=== PATIENT | female | born 1950 | race Caucasian/White ===

== ENCOUNTER → 2018-07-21 | Outpatient (CLI) | payer MEDICARE, SELFPAY ==
--- NOTE | 2018-07-21 08:33 | BI_ITS ---
MAMMOGRAPHY - BILATERAL SCREENING REASON FOR EXAM: Female, 67 years old. Routine annual screening examination. PERTINENT HISTORY: Non-contributory. TECHNIQUE: Digital bilateral breast raymond (3D mammographic acquisition) in the CC and MLO projections. 2-D mediolateral oblique (MLO) and craniocaudad (CC) views of both breasts were obtained. CAD: Full Field Digital Mammography with Computer Added Detection was performed. COMPARISON: Comparison is made with prior outside examination dated June 20, 2017. FINDINGS: Breast Composition: There are scattered areas of fibroglandular density. There are no dominant masses or suspicious calcifications. No other significant abnormalities are identified. There has been no significant change since the prior study. BI/SCREENING MAMM (CAD), BILAT IMPRESSION: Stable bilateral screening mammogram. Yearly follow-up mammogram recommended. (A) ASSESSMENT CATEGORY: BIRADS Category 1: Negative. A letter regarding these results will be sent to the patient by the facility within 30 days. Approximately 10% of breast cancers are not detected by mammography. A normal mammogram should not delay biopsy of a clinically suspicious abnormality. [id number] Electronically Signed: Cj Wei, at 13:48 EDT , Service support ,
== END | disposition home or self-care (01) ==
PROVIDERS: Family Provider Internal Medicine; PCP Internal Medicine; Referring Provider Internal Medicine; Visit Provider Internal Medicine
DX: Z12.31 Encounter for screening mammogram for malignant neoplasm of breast (principal)
CPT/HCPCS: 77063; 77067

== ENCOUNTER → 2018-12-13 | Outpatient (CLI) | payer MEDICARE, SELFPAY ==
[2018-12-13 09:24] VITALS: BMI 27.8
--- NOTE | 2018-12-13 10:50 | BD_ITS ---
STUDY: DUAL ENERGY X-RAY ABSORPTIOMETRY / DXA REASON FOR EXAM: Female, 67 years old. The patient is postmenopausal. Loss of height. TECHNIQUE: Bone Mineral Density (BMD) measurements of lumbar spine and bilateral hips were obtained. COMPARISON: None. FINDINGS: Lumbar Spine (L1-L4): g/cm2 (1.185) / T-score (0.1) / Z-score (1.7) Findings are suggestive of normal bone density with a low fracture risk. Left Femur Total: g/cm2 (0.996) / T-score (-0.1) / Z-score (1.2) Left Femoral Neck: g/cm2 (0.841) / T-score (-1.4) / Z-score (0.1) Right Femur Total: g/cm2 (1.009) / T-score (0.0) / Z-score (1.3) Right Femoral Neck: g/cm2 (0.899) / T-score (-1.0) / Z-score (0.5) BD/Dexa Bone Density Study IMPRESSION: The patient is considered osteopenic as outlined below according to World Brian Organization (WHO) criteria with a low fracture risk. Reference Information: The T-score is the number of standard deviations above or below the standard which is normal for young adults at their peak bone mineral density. The World Health Organization (WHO) interprets the T-scores as follows: Above -1 Normal bone density Between -1 and -2.5 Osteopenia Equal to / or below -2.5 Osteoporosis As a practical clinical guideline, osteopenia may be graded as follows: Mild -1 through -1.5 Moderate -1.6 through -2.0 Severe -2.1 through -2.4 The Z-score is the number of standard deviations above or below age-matched controls. A Z-score of less than -1.5 would be considered abnormal. References: 1. NIH Osteoporosis and Related Bone Diseases http://www.osteo.org 2. International Society for Clinical Densitometry http://www.iscd.org 3. National Osteoporosis Foundation http://www.nof.org Electronically Signed: Cj Wei, at 14:00 EDT , Service support ,
== END | disposition home or self-care (01) ==
LOC: OPBD 10:49
PROVIDERS: Family Provider Internal Medicine; PCP Internal Medicine; Referring Provider Internal Medicine; Visit Provider Internal Medicine
DX: Z78.0 Asymptomatic menopausal state (principal); Z13.820 Encounter for screening for osteoporosis
CPT/HCPCS: 77080

== ENCOUNTER 2019-01-03 07:24 | Day surgery (SDC) | payer MEDICARE, SELFPAY ==
[2018-12-13 09:24] VITALS: BMI 27.8
--- NOTE | 2018-12-14 10:18 | HP_ITS ---
Intake Vital Signs 12/13/18 Height 5 ft 5.5 in 12/13/18 Weight: 170 lb 12/13/18 Body Mass Index (BMI) 27.8 12/13/18 Blood Pressure 122/75 H 12/13/18 Blood Pressure Location Rt brachial Intake Visit Reasons: Cscope Consult [employer] Required: No Is patient in pain?: No Allergies aspirin Allergy (Mild, Verified 12/13/18 09:28) Rash diltiazem [From Cardizem] Allergy (Mild, Verified 12/13/18 09:28) Rash nifedipine Allergy (Mild, Verified 12/13/18 09:28) Rash Medications isosorbide dinitrate 30 mg tablet 30 mg PO BID 12/13/18 [History Confirmed 12/13/18] rosuvastatin 10 mg tablet 10 mg PO DAILY 12/13/18 [History Confirmed 12/13/18] verapamil ER 120 mg 24 hr capsule,extended release 120 mg PO DAILY 12/13/18 [History Confirmed 12/13/18] PFSH Medical History Heart disease (Acute) Surgical History S/P laparoscopic cholecystectomy (Acute) S/P tubal ligation (Acute) Family History Mother Diabetes Sister Diabetes CAD (coronary artery disease) Father Heart disease Social History (Updated 12/14/18 @ 10:19 by Chester Muller MD) Smoking Status: Former smoker alcohol intake: never HPI HPI HPI: BJORN STEPHENS, is a 67 F who presents to the office today for HPI HPI Surgical H&P: Yes HPI: BJORN STEPHENS, is a 67 F who presents to the office today for Evaluation for screening colonoscopy. Patient had a colonoscopy approximately 11 years ago in [place] by Dr. Bay. She has had no pain and no discomfort and is been moving her bowels without difficulty. ROS General General: No weight change, appetite, fatigue, colon cancer, breast cancer or weakness HEENT HEENT: No difficulty swallowing, eye injury, eye surgery, swollen glands or hoarseness Endo Endocrine: No thyroid disease, diabetes mellitus, thyroid cancer, Hair loss, heat intolerance or cold intolerance Skin Skin: No rash or changing moles Breast Breast: No left breast lump, right breast lump, nipple discharge, breast pain, abnormal mammogram, abnormal US or breast enlargement Musc Musculoskeletal: Yes arthritis; no back problems, rheumatoid arthritis, gout or joint pain Cardio Cardiovascular: Yes heart disease and heart attack; no murmur, pacemaker, atrial fibrillation, high blood pressure, heart stent, palpitations, shortness of breat with exertion or chest pain Psych Psychiatric: No depression, anxiety or hearing voices Resp Respiratory: No shortness of breath, No sleep apnea, No cough, No COPD, No asthma, No emphysema, No wheezing Gastro Gastrointestinal: No abdominal pain, No nausea or vomiting, No diarrhea, No constipation, No blood in stool, No acid reflux, No hemorrhoids, No ulcers, No gallbladder problem, No black,tarry stools Rajesh Hematologic: No blood thinners, No blood disorders, No bleeding, No anemia, No blood clots Neuro Neurologic: No system reviewed and no additional complaints, except as docu, No as per HPI, No abnormal walking, No abnormal hearing, No abnormal movements, No abnormal speech, No behavioral changes, No burning sensations, No confusion, No seizure-like activity, No unsteadiness, No dizziness, No localized weakness, No frequent falls, No headache(s), No lack of coordination, No loss of vision, No memory loss, No numbness, No other visual disturbances, No radiating pain, No restless legs, No sensory deficit, No fainting, No tingling, No tremor(s), No weakness, No other Exam Const General: no acute distress, well developed, well hydrated Orientation: oriented to person, oriented to place, oriented to time [facility] Head: normocephalic, atraumatic Ears: external ears normal Mouth: moist mucous membranes Eyes Sclera: sclerae normal Pupils: normal by confrontation Neck Neck: no lymphadenopathy noted Neck mass: No Thyroid: thyroid normal, symmetrical Chest Chest palpation & inspection: normal inspection of the chest Breast Palpation: No nipple discharge Resp Effort & Inspection: normal respiratory effort Auscultation: clear to auscultation bilaterally Percussion: percussion normal Cardio Rate: regular rate Rhythm: regular rhythm Heart Sounds: no murmurs GI Palpation: soft, no hepatosplenomegaly, no masses, nontender Rectal Exam: other Other: Rectal exam deferred. Extrem General: normal to inspection, no clubbing, cyanosis or edema Assessment & Plan Problems 1. Encounter for screening colonoscopy Z12.11 Plan I have discussed the above with the patient. I have offered the patient colonoscopy for evaluation. I have explained the risks/benefits of the procedure and described the procedure. I have discussed the risks with the patient, including but not limited to: infection, bleeding, perforation of the GI tract requiring emergency surgery, inability to complete the procedure, injury to any internal organs, complications of anesthesia, etc. - the patient understands and agrees to proceed. I have answered all the patient's questions to the patient's satisfaction and the patient has no further questions. The patient has been given instructions for the colon cleansing preparation. Coding Level of Care Code Off vis,new,level 3 Diagnoses Encounter for screening colonoscopy Z12.11 12/14/18 1019 <Electronically signed by Chester bradford MD> Date _ Chester Muller MD I have re-examined the patient. There are no clinical changes since date of exam.
[2019-01-03] VITALS (9 sets, daily range): BP systolic 78–125; BP diastolic 39–77; PULSE 50–69; RESP 16; TEMP 36.1–36.3; O2SAT 95–100; BMI 28.5
[2019-01-03] MEDS: Lactated Ringers 1,000 ML 100 ML IV (08:14)
[2019-01-03 08:21] LABS: Bedside Glucose 115 mg/dL (70-110)
--- NOTE | 2019-01-03 09:19 | OP.ENDO_ITS ---
01/03/2019 Tamia Ansari Re : Colonoscopy procedure for Sharonda Gurrola Dear Coty This procedure was performed on Thursday, January 03, 2019. My impressions and recommendations are as follows: Impressions : - Melanosis in the colon. No specimens collected. - The examination was otherwise normal on direct and retroflexion views. Recommendations : - Discharge patient to home. - Resume previous diet. - Continue present medications. - Repeat colonoscopy in 10 years for screening purposes. - Return to primary care physician PRN. My findings are described in the full procedure note, which is enclosed. If I can be of further assistance, please feel free to contact me at Doctor phone number(s): , Fax: [phone], Work: . Sincerely, MD Chester Talbot MD 01/03/2019 9:18:46 AM This report has been signed electronically.
== END 2019-01-03 10:29 | disposition home or self-care (01) ==
LOC: EN 07:24 → AC 07:26
PROVIDERS: Family Provider Internal Medicine; PCP Internal Medicine; Referring Provider Internal Medicine; Visit Provider Surgery
PROC: 0DJD8ZZ Inspection of Lower Intestinal Tract, Via Natural or Artificial Opening Endoscopic (ICD-10-PCS; CPT 45378; principal; 2019-01-03 08:30)
DX: Z12.11 Encounter for screening for malignant neoplasm of colon (principal); K63.89 Other specified diseases of intestine; I51.9 Heart disease, unspecified; E78.00 Pure hypercholesterolemia, unspecified; E11.9 Type 2 diabetes mellitus without complications; I25.2 Old myocardial infarction; I10 Essential (primary) hypertension; Z87.891 Personal history of nicotine dependence; Z79.899 Other long term (current) drug therapy
CPT/HCPCS: G0121; 82962; J7120; J2405

== ENCOUNTER → 2021-01-27 10:31 | Outpatient (CLI) | payer MEDICARE, SELFPAY ==
--- NOTE | 2021-01-27 10:33 | BI_ITS ---
MAMMOGRAPHY - BILATERAL SCREENING REASON FOR EXAM: Female, 70 years old. Routine annual screening examination. PERTINENT HISTORY: Non-contributory. TECHNIQUE: Digital bilateral breast charlie (3D mammographic acquisition) in the CC and MLO projections. 2-D mediolateral oblique (MLO) and craniocaudad (CC) views of both breasts were obtained. CAD: Full Field Digital Mammography with Computer Added Detection was performed. COMPARISON: Comparison is made with prior study dated 07/21/2018. FINDINGS: Breast Composition: There are scattered areas of fibroglandular density. There are no dominant masses or suspicious calcifications. Stable benign-appearing bilateral axillary lymph nodes. No other significant abnormalities are identified. There has been no significant change since the prior study. BI/SCRN MAMM (CAD)W/CHARLIE BILAT IMPRESSION: Stable bilateral screening mammogram. Yearly follow-up mammogram recommended. (A) ASSESSMENT CATEGORY: BIRADS Category 2: Benign. A letter regarding these results will be sent to the patient by the facility within 30 days. Approximately 10% of breast cancers are not detected by mammography. A normal mammogram should not delay biopsy of a clinically suspicious abnormality. [id number] Electronically Signed: Cj Wei MD at 12:13 EST , Service support ,
--- NOTE | 2021-01-27 10:36 | BD_ITS ---
STUDY: DUAL ENERGY X-RAY ABSORPTIOMETRY / DXA REASON FOR EXAM: Female, 70 years old. M85.89 TECHNIQUE: Bone Mineral Density (BMD) measurements of lumbar spine and bilateral hips were obtained. COMPARISON: Comparison is made with prior study 12/13/2018. FINDINGS: Lumbar Spine (L1-L4): g/cm2 (1.025) / T-score (-0.2) / Z-score (1.8) Findings are suggestive of normal bone density with a low fracture risk. Left Femur Total: g/cm2 (0.933) / T-score (-0.1) / Z-score (1.4) Left Femoral Neck: g/cm2 (0.666) / T-score (-1.6) / Z-score (0.1) Right Femur Total: g/cm2 (0.941) / T-score (0.0) / Z-score (1.4) Right Femoral Neck: g/cm2 (0.706) / T-score (-1.3) / Z-score (0.4) The T-Scores on the most recent prior examination were: Lumbar Spine (L1-L4): There has been worsening of bone density since the previous examination. Left Femur Total: which represents an improvement of 0.3%. Right Femur Total: which represents a worsening of 0.2%. BD/Dexa Bone Density Study IMPRESSION: The patient is considered osteopenic as outlined below according to World Brian Organization (WHO) criteria with a moderate fracture risk. There has been worsening of bone density since the previous examination. Reference Information: The T-score is the number of standard deviations above or below the standard which is normal for young adults at their peak bone mineral density. The World Health Organization (WHO) interprets the T-scores as follows: Above -1 Normal bone density Between -1 and -2.5 Osteopenia Equal to / or below -2.5 Osteoporosis As a practical clinical guideline, osteopenia may be graded as follows: Mild -1 through -1.5 Moderate -1.6 through -2.0 Severe -2.1 through -2.4 The Z-score is the number of standard deviations above or below age-matched controls. A Z-score of less than -1.5 would be considered abnormal. References: 1. NIH Osteoporosis and Related Bone Diseases www osteo.org 2. International Society for Clinical Densitometry www iscd.org 3. National Osteoporosis Foundation www nof.org Electronically Signed: Cj Wei MD at 15:41 EST , Service support ,
== END ==
PROVIDERS: PCP Internal Medicine; Referring Provider Internal Medicine; Visit Provider Internal Medicine
DX: Z78.0 Asymptomatic menopausal state (principal); Z12.31 Encounter for screening mammogram for malignant neoplasm of breast
CPT/HCPCS: 77063; 77067; 77080

== ENCOUNTER → 2021-11-17 | Outpatient (CLI) | payer MEDICARE, SELFPAY ==
[2021-11-17 11:57] LABS: Absolute Lymphocyte Count 1.57 X10^3/uL (0.83-4.51); Absolute Neutrophil Count 8.2 X10^3/uL (2.0-7.7); Basophil# 0.03 X10^3/uL; Basophil% 0.3 % (0-1); Eosinophil# 0.05 X10^3/uL; Eosinophils% 0.5 % (0-5); Hematocrit 40.5 % (37-47); Hemoglobin 13.9 g/dL (12.0-15.0); Lymphocyte # 1.57 X10^3/ul (0.83-4.51); Lymphocyte % 14.8 % (19-41); Mean Corp Hgb Conc 34.3 g/dL (32-36); Mean Corpuscular Hgb 33.6 pg (27.0-32.0); Mean Corpuscular Volume 97.8 fL (81-99); Mean Platelet Vol. 9.6 fl (6.2-12.0); Monocyte# 0.73 X10^3/uL; Monocyte% 6.9 % (0-10); NRBC Flagged by Analyzer 0 % (0-5); Neutrophil # 8.19 X10^3/uL (2.7-7.7); Platelet Count 261 K/mm3 (150-450); RBC Distribution Width CV 13.2 % (11.6-14.6); RBC Distribution Width SD 47.3 fl (35.1-43.9); Red Blood Count 4.14 M/mm3 (4.2-5.4); White Blood Count 10.6 K/mm3 (4.4-11.0)
[2021-11-17 12:44] LABS: ALB/GLOB Ratio 0.9 RATIO (0.9-2.4); AST(SGOT) 16 U/L (15-37); Alanine Aminotransfer ALT/SGPT 31 U/L (13-56); Albumin, Serum 3.7 g/dL (3.2-5.0); Alkaline Phosphatase 57 U/L (45-117); Anion Gap 8 (5-15); BUN 13 mg/dL (7-18); BUN/Creat Ratio 16.8 RATIO (10-20); Calcium,Total 10.1 mg/dL (8.5-10.1); Chloride 105 mmol/L (98-107); Creatinine, Serum 0.78 mg/dL (0.55-1.02); EST Glomerular Filtration Rate 78 mL/min (>60); Est Glom Filt Rate - Afr Amer 95 mL/min (>60); Globulin 3.9 g/dL (2.2-4.2); Glucose 101 mg/dL (74-106); Potassium 4.1 mmol/L (3.5-5.1); Protein, Total 7.6 g/dL (6.4-8.2); Rheumatoid Factor < 10.0 IU/mL (<15); Sodium Level 140 mmol/L (136-145)
[2021-11-17 13:12] LABS: Hepatitis B Surface Antibody Non-Reactive; Hepatitis B Surface Antigen Non-Reactive (Nonreactive); Hepatitis C Antibody Non-Reactive (Nonreactive)
[2021-11-19 08:27] LABS: CCP IgG Antibodies 4 units (0-19)
== END | disposition home or self-care (01) ==
LOC: MTLAB 10:05
PROVIDERS: PCP Internal Medicine; Referring Provider Internal Medicine Rheumatology; Visit Provider Internal Medicine Rheumatology
DX: M06.4 Inflammatory polyarthropathy (principal); M79.7 Fibromyalgia; M85.80 Other specified disorders of bone density and structure, unspecified site
CPT/HCPCS: 36415; 80053; 85025; 86200; 86431; 86706; 86803; 87340

== ENCOUNTER → 2022-03-08 | Outpatient (CLI) | payer MEDICARE, SELFPAY ==
--- NOTE | 2022-03-08 15:00 | BI_ITS ---
MAMMOGRAPHY - BILATERAL SCREENING REASON FOR EXAM: Female, 71 years old. Routine annual screening examination. PERTINENT HISTORY: Non-contributory. TECHNIQUE: Digital bilateral breast charlie (3D mammographic acquisition) in the CC and MLO projections. 2-D mediolateral oblique (MLO) and craniocaudad (CC) views of both breasts were obtained. CAD: Full Field Digital Mammography with Computer Added Detection was performed. COMPARISON: Comparison is made with prior study dated 01/27/2021 and 07/21/2018. FINDINGS: Breast Composition: There are scattered areas of fibroglandular density. There are no dominant masses or suspicious calcifications. Stable fat-containing bilateral axillary lymph nodes. No other significant abnormalities are identified. There has been no significant change since the prior study. BI/SCRN MAMM (CAD)W/CHARLIE BILAT IMPRESSION: Stable bilateral screening mammogram. Yearly follow-up mammogram recommended. (A) ASSESSMENT CATEGORY: BIRADS Category 2: Benign. A letter regarding these results will be sent to the patient by the facility within 30 days. Approximately 10% of breast cancers are not detected by mammography. A normal mammogram should not delay biopsy of a clinically suspicious abnormality. [id number] Electronically Signed: Cj Wei MD at 15:45 EST ,
== END | disposition home or self-care (01) ==
LOC: OPBI 14:58
PROVIDERS: PCP Internal Medicine; Visit Provider Internal Medicine
DX: Z12.31 Encounter for screening mammogram for malignant neoplasm of breast (principal)
CPT/HCPCS: 77063; 77067

== ENCOUNTER 2022-08-28 00:40 | Emergency (ER) | payer MEDICARE, SELFPAY ==
[2022-08-28 00:42] VITALS: BP 186/94; PULSE 83; RESP 18; TEMP 36.5; O2SAT 97; BMI 30.7
[2022-08-28 00:45] VITALS: BP 157/87
--- NOTE | 2022-08-28 01:27 | EX.ED.DYSGE1 ---
HPI History of Present Illness Chief Complaint: Lower Extremity Injury Informant: patient and family Narrative Narrative: Patient is a 71-year-old female with past medical history of hypertension and coronary artery disease. She states that over the past few weeks she has been having left-sided lower leg pain. She denies any recent trauma or excessive activity. She states that the leg is painful in the mid to upper calf as well as along the left hip and buttock region. She states it does seem to be worse when she is weightbearing or moving and better at rest. She states that she was seen by her family doctor and had an ultrasound done earlier today to rule out blood clot as well as x-rays of the hip which did not reveal any acute findings but as the pain has persisted she comes in for evaluation. [facility] Medical History (Updated 08/30/22 @ 23:[address] Steven Whitehead, ) Heart disease HTN (hypertension) NSTEMI (non-ST elevated myocardial infarction) Home Medications isosorbide dinitrate 30 mg tablet 30 mg PO DAILY 12/13/18 [History Last Taken 01/03/19 06:30 30 MG] rosuvastatin 10 mg tablet (Crestor) 5 mg PO MOWEFR 12/13/18 [History Last Taken Unknown] verapamil 120 mg 24 hr capsule,extended release 120 mg PO DAILY 12/13/18 [History Last Taken 01/03/19 06:30 120 MG] calcium carbonate 600 mg calcium (1,500 mg) tablet 600 mg PO TID 01/01/19 [History Last Taken Unknown] cranberry extract 500 mg capsule 1,400 mg PO BID 01/01/19 [History Last Taken Unknown] multivitamin with minerals 1 ea PO DAILY 01/01/19 [History Last Taken Unknown] omega-3 fatty acids 1,000 mg capsule 1,360 mg PO DAILY 01/01/19 [History Last Taken Unknown] selenium 100 mcg tablet 100 mcg PO DAILY 01/01/19 [History Last Taken Unknown] gabapentin 100 mg capsule 100 mg PO TID 30 days #90 caps 08/28/22 [Rx Last Taken Unknown] hydrocodone-acetaminophen 5-325mg 5mg-325mg 1 tab PO Q6H PRN PRN Pain 3 days #12 TABLETS 08/28/22 [Rx Last Taken Unknown] methocarbamol 500 mg tablet 500 mg PO 4X/DAY PRN PRN Muscle pain/spasm #40 tabs 08/28/22 [Rx Last Taken Unknown] prednisone 2.5 mg tablet 2.5 mg PO DAILY 08/28/22 [History Last Taken Unknown] Allergy/AdvReac Type Severity Reaction Status Date / Time aspirin Allergy Mild Rash Verified 01/03/19 07:55 diltiazem [From Cardizem] Allergy Mild Rash Verified 01/03/19 07:55 nifedipine Allergy Mild Rash Verified 01/03/19 07:55 Family History Mother Diabetes Sister Diabetes CAD (coronary artery disease) Father Heart disease Surgical History S/P laparoscopic cholecystectomy S/P tubal ligation Social History (Updated 12/14/18 @ 10:[address] Chester Muller MD) Smoking Status: Never smoker alcohol intake: never ROS ROS ED Constitutional Constitutional ED: Denies chills or fever(s) ENT ENT ED: Denies sore throat Cardiovascular Cardiovascular: Denies chest pain Respiratory/Chest Respiratory/Chest: Denies cough or dyspnea Gastrointestinal Gastrointestinal: Denies abdominal pain, diarrhea, nausea or vomiting Genitourinary Genitourinary ED: Denies dysuria Musculoskeletal Musculoskeletal: Reports other Details: Positive left leg pain ; Denies back pain Integumentary Denies rash Neurologic Neurologic: Denies headache(s) or paresthesias Hematologic/Lymphatic Hematologic/Lymphatic: Denies easy bleeding or easy bruising EXAM Physical Exam Const Vital Signs: 08/28/22 00:42 08/28/22 00:45 Temperature 97.7 F L Temperature Source Temporal Pulse Rate 83 Respiratory Rate 18 Blood Pressure 186/94 H 157/87 H Blood Pressure Mean 124 110 Pulse Ox 97 Oxygen Delivery Method Room Air Positive well nourished, well developed and obese General Appearance ED: well developed Nutritional Appearance: obese HEENT HEENT Narrative: Normocephalic atraumatic Eyes PERRL and EOMs intact bilaterally General Eye ED: Negative for scleral icterus Neck supple Resp normal respiratory effort and clear to auscultation bilaterally Cardio regular rate and regular rhythm Rate: other Other Details: Radial pulses are plus 2 out of 4 bilaterally are equal and symmetric Back/Spine Back/Spine Narrative: No bony deformity or step-off of the thoracic or lumbar spine no midline pain on palpation. No saddle anesthesia. No clonus or Babinski. Patellar reflexes are plus 1 out of 4 bilaterally. Negative straight leg raise. There is pain with palpation along the left sacroiliac and piriformis muscle belly region. Extremity Extremity Narrative: There is slight asymmetric edema of the left lower leg compared to right with negative Homans' sign bilaterally. No obvious bony deformity or joint effusion. Active range of motion is slightly decreased secondary to pain but there is full passive range of motion noted Neuro oriented x3, CN's II-XII intact bilaterally and no sensory deficits noted Sensorium / Orientation: alert Psych mental status grossly normal Skin no rashes or lesions noted Skin Narrative: No overlying erythema or warmth to suggest infection no abrasions or ecchymosis to suggest trauma MDM MDM MDM Narrative Medical decision making narrative: Patient presented to the ER mildly hypertensive but otherwise with stable vitals. She reported left leg pain with no associated trauma or excessive activity and therefore differential diagnosis includes sciatica versus piriformis syndrome versus sacroiliac joint dysfunction versus herniated disc/nerve impingement versus DVT. Patient is already had an ultrasound done today which was negative ruling out DVT and by exam there were no secondary changes to suggest infection. By exam patient has pain with palpation over top the left sacroiliac joint and into the piriformis muscle belly with worsening with hip flexion indicating this is most likely piriformis syndrome. As patient is already had the ultrasound and x-ray do not feel there is need for further imaging and as she has no signs of infection I do not feel there is need for blood work. Patient will be medicated for pain control and otherwise is safe for discharge. History & Record Review Discussion w/independent historian: Patient and Family Discharge Plan Triage Chief Complaint: Lower Extremity Injury ED Provider: Steven Whitehead Dx/Rx/DC Orders Clinical Impression: Piriformis syndrome of left side, Hypertension Instructions: RLS What to Do, Hip Rotation (Flexibility) Prescriptions: New methocarbamol 500 mg tablet 500 mg PO 4X/DAY PRN PRN (Reason: Muscle pain/spasm) Qty: 40 0RF gabapentin 100 mg capsule 100 mg PO TID 30 Days Qty: 90 0RF hydrocodone-acetaminophen 5-325 mg tablet 1 tab PO Q6H PRN PRN (Reason: Pain) 3 Days Qty: 12 0RF No Action isosorbide dinitrate 30 mg tablet 30 mg PO DAILY verapamil 120 mg capsule,ext rel. pellets 24 hr 120 mg PO DAILY rosuvastatin [Crestor] 10 mg tablet 5 mg PO MOWEFR omega-3 fatty acids 1,000 MG capsule 1,360 mg PO DAILY calcium carbonate 600 MG tablet 600 mg PO TID selenium 100 MCG tablet 100 mcg PO DAILY multivitamin with minerals 1 EACH tablet 1 ea PO DAILY cranberry extract 500 MG capsule 1,400 mg PO BID prednisone 2.5 mg tablet 2.5 mg PO DAILY Primary Care Provider: Tamia Ansari Referrals: Tamia Ansari MD [Primary Care Provider] - Disposition Disposition: Home, Self Care Discharge Date/Time: 08/28/22 02:19
[2022-08-28] MEDS: Ondansetron ODT 4 MG Tablet PO (01:47)
[2022-08-28] MEDS: Morphine 4 MG/ML Syringe IM (01:47)
[2022-08-28] MEDS: Orphenadrine 60 MG/2 ML Ampul IM (01:47)
[2022-08-28] MEDS: Gabapentin 100 MG Capsule PO (01:47)
[2022-08-28 01:53] VITALS: BP 155/93; PULSE 73; RESP 18; O2SAT 97
== END 2022-08-28 02:19 | disposition home or self-care (01) ==
PROVIDERS: Emergency Provider Emergency Medicine; PCP Internal Medicine; Visit Provider Emergency Medicine
DX: G57.02 Lesion of sciatic nerve, left lower limb (principal); I25.10 Atherosclerotic heart disease of native coronary artery without angina pectoris; I10 Essential (primary) hypertension; Z79.52 Long term (current) use of systemic steroids; E66.9 Obesity, unspecified
CPT/HCPCS: 96372; 99283

== ENCOUNTER 2022-11-18 05:58 | Day surgery (SDC) | payer MEDICARE, SELFPAY ==
[2022-11-18 06:17] VITALS: BP 161/82; PULSE 71; RESP 16; TEMP 36.3; O2SAT 98; BMI 30.9
--- NOTE | 2022-11-18 07:04 | PCM.OPRPT ---
Report of Operation Date of Procedure: 11/18/22 Description of Surgical Findings:: Date of procedure: Surgeon: Alverto Friedman DO Diagnosis: Lumbar stenosis, radiculopathy Complications: None Blood loss: None Anesthesia: Local Time out: A timeout was completed verifying correct patient, procedure, site, positioning, implant, and/or special equipment. Fluoroscopy time: Indications for the procedure: Failed physical therapy and oral medications Procedure: The patient was seen in the preop holding area. Risks and benefits of the procedure were explained to the patient and informed consent was obtained. The patient was transported to the procedure room and positioned prone on the fluoroscopy table. The back was prepped and draped in the usual sterile fashion. Sterile technique was used throughout. Corresponding skin and subcutaneous tissue needle entry sites were anesthetized via a 27-gauge 1.5 inch needle using 1% lidocaine x10 mL. Under fluoroscopic guidance a 22-gauge 5 inch spinal needle was advanced to enter the caudal space. Position was confirmed in AP, oblique, and lateral views. Subsequently contrast was injected. Positive epidural spread was noted in both AP and lateral views. No intramuscular or intrathecal uptake was noted. After negative aspiration: Bupivacaine 0.25% 3 mL, 1 mL of Kenalog 40 mg/mL, and preservative-free normal saline 3 mL for a total volume of 7 mL was injected. The needle was removed. No complications were noted. The patient was transported to the recovery room and monitored until discharge criteria were met. Surgeon: Alverto Friedman Type of Anesthesia: Local Complications None Admit VTE Documentation VTE Present on Admission: No
--- NOTE | 2022-11-18 07:20 | RAD_ITS ---
PROCEDURE: Caudal block. DATE OF EXAMINATION: November 18, 2022. INDICATION: Female, 71 years old. Chronic low back pain. FLUOROSCOPY TIME (if supplied): (14 seconds) minutes/seconds 3.42 mGy. One image was submitted. RAD/Fluor Guidance for Spine Inj IMPRESSION: Intraoperative imaging provided for caudal block. Electronically Signed: Cj Wei MD at 10:20 EDT ,
[2022-11-18] MEDS: 0.9% Normal Saline (Pres. free 10 ML Vial (07:33)
[2022-11-18] MEDS: Lidocaine 1% (5 ml sdv) 5 ML Vial (07:33)
[2022-11-18] MEDS: Triamcinolone Acetonide 40 MG/ML Vial (07:33)
== END 2022-11-18 08:09 | disposition home or self-care (01) ==
LOC: SDC 05:59 → AC 06:11
PROVIDERS: PCP Internal Medicine; Referring Provider Orthopaedic Surgery; Visit Provider Orthopaedic Surgery
PROC: 3E0S3BZ Introduction of Anesthetic Agent into Epidural Space, Percutaneous Approach (ICD-10-PCS; CPT 62282; principal; 2022-11-18 07:25)
DX: M51.16 Intervertebral disc disorders with radiculopathy, lumbar region (principal); E11.9 Type 2 diabetes mellitus without complications; M51.17 Intervertebral disc disorders with radiculopathy, lumbosacral region; M48.061 Spinal stenosis, lumbar region without neurogenic claudication; E78.00 Pure hypercholesterolemia, unspecified; R03.0 Elevated blood-pressure reading, without diagnosis of hypertension; E66.3 Overweight; Z68.29 Body mass index [BMI] 29.0-29.9, adult; Z78.0 Asymptomatic menopausal state
CPT/HCPCS: 62323; 01992; 64483; 77003; J3490

== ENCOUNTER → 2023-03-10 | Outpatient (CLI) | payer MEDICARE, SELFPAY ==
--- NOTE | 2023-03-10 13:34 | BI_ITS ---
MAMMOGRAPHY - BILATERAL SCREENING REASON FOR EXAM: Female, 72 years old. Routine annual screening examination. PERTINENT HISTORY: Non-contributory. TECHNIQUE: Digital bilateral breast charlie (3D mammographic acquisition) in the CC and MLO projections. 2-D mediolateral oblique (MLO) and craniocaudad (CC) views of both breasts were obtained. CAD: Full Field Digital Mammography with Computer Added Detection was performed. COMPARISON: Comparison is made with prior study dated March 08, 2022 and January 27, 2021. FINDINGS: Breast Composition: There are scattered areas of fibroglandular density. There are no dominant masses or suspicious calcifications. Stable fat-containing bilateral axillary lymph nodes. No other significant abnormalities are identified. There has been no significant change since the prior study. BI/SCRN MAMM (CAD)W/CHARLIE BILAT IMPRESSION: Stable bilateral screening mammogram. Yearly follow-up mammogram recommended. (A) ASSESSMENT CATEGORY: BIRADS Category 2: Benign. A letter regarding these results will be sent to the patient by the facility within 30 days. Approximately 10% of breast cancers are not detected by mammography. A normal mammogram should not delay biopsy of a clinically suspicious abnormality. [id number] Electronically Signed: Cj Wei MD at 14:41 EST ,
--- OUTSIDE RECORDS SUMMARY | 2023-03-10 14:13 | XMS RPT_ITS | CCD ---
Author Name Unknown Address [address] [place] [address] Organization [facility] Care Team Providers Care Laboratory Associate Name Role Phone JULIA GONZALEZROS Unavailable Unavailable PASHA PASTOR Unavailable Unavailable TAMIA GONZALEZ Unavailable Unavailable Unavailable Unavailable Dory, Dr. Bety Mayen Referring Unavailab bryce Mckeonoh, Dr. Bety Mayen Attending Unavailab Dr. Tamia Aleman Primary Care Unavailable TAMIA GONZALEZ MD Primary Care Unavailable TAMIA GONZALEZ MD Consulting Unavailable TAMIA GONZALEZ MD Admitting Unavailable TAMIA GONZALEZ MD Attending Unavailable PROVIDER, UNKNOWN Consulting Unavailable PROVIDER, UNKNOWN Consulting Unavailable PROVIDER, UNKNOWN Consulting Unavailable TAMIA GONZALEZ MD Primary Care Unavailable TAMIA GONZALEZ MD Consulting Unavailable TAMIA GONZALEZ MD Attending Unavailable TAMIA GONZALEZ MD Admitting Unavailable KRYSTAL JONES MD Referring Unavailable PROVIDER, UNKNOWN Consulting Unavailable PROVIDER, UNKNOWN Consulting Unavailable PROVIDER, UNKNOWN Consulting Unavailable TAMIA GONZALEZ MD Consulting Unavailable KRYSTAL JONES MD Admitting Unavailable KRYSTAL JONES MD Primary Care Unavailable KRYSTAL JONES MD Attending Unavailable PROVIDER, UNKNOWN Consulting Unavailable PROVIDER, UNKNOWN Consulting Unavailable PROVIDER, UNKNOWN Consulting Unavailable TAMIA GONZALEZ MD Primary Care Unavailable TAMIA GONZALEZ MD Admitting Unavailable TAMIA GONZALEZ MD Attending Unavailable TAMIA GONZALEZ MD Consulting Unavailable PROVIDER, UNKNOWN Consulting Unavailable PROVIDER, UNKNOWN Consulting Unavailable PROVIDER, UNKNOWN Consulting Unavailable TAMIA GONZALEZ MD Consulting Unavailable TAMIA GONZALEZ MD Admitting Unavailable TAMIA GONZALEZ MD Attending Unavailable TAMIA GONZALEZ MD Primary Care Unavailable PROVIDER, UNKNOWN Consulting Unavailable PROVIDER, UNKNOWN Consulting Unavailable PROVIDER, UNKNOWN Consulting Unavailable TAMIA GONZALEZ MD Primary Care Unavailable TAMIA GONZALEZ MD Consulting Unavailable LATOUF, TAMIA MANZANARES Attending Unavailable LATOUF, TAMIA MANZANARES Admitting Unavailable PROVIDER, UNKNOWN Consulting Unavailable PROVIDER, UNKNOWN Consulting Unavailable PROVIDER, UNKNOWN Consulting Unavailable LATOUF, TAMIA MANZANARES Primary Care Unavailable LATOUF, TAMIA MANZANARES Consulting Unavailable LATOUF, TAMIA MANZANARES Attending Unavailable LATOUF, TAMIA MANZANARES Admitting Unavailable PROVIDER, UNKNOWN Consulting Unavailable PROVIDER, UNKNOWN Consulting Unavailable PROVIDER, UNKNOWN Consulting Unavailable LATOUF, TAMIA MANZANARES Primary Care Unavailable LATOUF, TAMIA MANZANARES Consulting Unavailable LATOUF, TAMIA MANZANARES Attending Unavailable LATOUF, TAMIA MANZANARES Admitting Unavailable PROVIDER, UNKNOWN Consulting Unavailable PROVIDER, UNKNOWN Consulting Unavailable PROVIDER, UNKNOWN Consulting Unavailable Latouf, Dr. Cantrell Primary Care Unavailable Muoh, Bety Attending Unavailable Latouf, Dr. Cantrell Referring Unavailable Latouf, Dr. Cantrell Referring Unavailable Muoh, Bety Attending Unavailable Latouf, Dr. Cantrell Primary Care Unavailable Muoh, Bety Attending Unavailable Latouf, Dr. Cantrell Primary Care Unavailable Latouf, Dr. Cantrell Referring Unavailable Stempak, Dr. Halima Rangel Attending Unavaila ble Latouf, Dr. Cantrell Primary Care Unavailable Latouf, Dr. Cantrell Primary Care Unavailable Muoh, Bety Attending Unavailable Latouf, Dr. Cantrell Referring Unavailable Allergies Allergy Classification Reported Allergen(s) Allergy Type Date of Onset Reaction(s) Facility (12 sources) Aspirin; Translations: [aspirin] Drug Allergy [facility] Work Phone: (12 sources) dilTIAZem; Translations: [Cardizem] Drug Allergy [facility] Work Phone: (12 sources) NIFEdipine; Translations: [NIFEdipine] Drug Allergy [facility] Work Phone: (1 source) dilTIAZem Drug Allergy [facility] Repository Medications Completed/Discontinued Medications Medication Drug Class(es) Dates Sig (Normalized) Sig (Original) Calcium (12 sources) Phosphate Binder, Calcium Calcium TABS Quantity: 0 Refills: 0 Ordered: 19-Apr-2022 DO Active cinnamon bark 500 mg oral capsule (12 sources) Cinnamon 500 MG Oral Capsule Quantity: 0 Refills: 0 Ordered: 19-Apr-2022 DO Active Cranberry preparation (12 sources) Non-Standardized Food Allergenic Extract, Non-Standardized Plant Allergenic Extract Cranberry TABS Quantity: 0 Refills: 0 Ordered: 19-Apr-2022 DO Active docosahexaenoic acid 120 mg / eicosapentaenoic acid 180 mg oral capsule (12 sources) [place] 3 1000 MG Oral Capsule Quantity: 0 Refills: 0 Ordered: 19-Apr-2022 DO Active Ground Flax Seeds Oral Powder (12 sources) Ground Flax Seeds Oral Powder Quantity: 0 Refills: 0 Ordered: 19-Apr-2022 DO Active isosorbide dinitrate 30 mg oral tablet (12 sources) Nitrate Vasodilator Isosorbide Dinitrate 30 MG Oral Tablet Quantity: 0 Refills: 0 Ordered: 19-Apr-2022 DO Active predniSONE 2.5 mg oral tablet (11 sources) Start: 08-03-2022 take 1 tablet by mouth every other day predniSONE 2.5 MG Oral Tablet TAKE 1 TABLET BY MOUTH x 2 weeks and then 2.5 mg every other day x2 weeks Quantity: 30 Refills: 0 Ordered: 16-Aug-2022 Muoh DO, Bety Start : 03-Aug-2022 Active Problems Active Problems Problem Classification Problem Date Documented Date Episodic/Chronic Coagulation and hemorrhagic disorders (2 sources) Easy bruising; Translations: [Spontaneous ecchymoses] Episodic Coronary atherosclerosis and other heart disease (1 source) Atherosclerotic heart disease of [place] coronary artery without angina pectoris; Translations: [Atherosclerotic heart disease of [place] coronary artery without angina pectoris] Onset: 02-11-2022 Chronic Diabetes mellitus without complication (4 sources) Type 2 diabetes mellitus without complications; Translations: [Type 2 diabetes mellitus without complications] Onset: 12-02-2021 Chronic Disorders of lipid metabolism (4 sources) Hyperlipidemia, unspecified; Translations: [Hyperlipidemia, unspecified] Onset: 06-07-2022 Chronic Nutritional deficiencies (12 sources) Vitamin D deficiency; Translations: [Unspecified vitamin D deficiency] Chronic Osteoarthritis (5 sources) Primary osteoarthritis, left hand; Translations: [Primary osteoarthritis, left wrist] Onset: 04-19-2022 Chronic Other and ill-defined heart disease (1 source) Cardiomegaly; Translations: [Cardiomegaly] Onset: 02-11-2022 Chronic Other nervous system disorders (12 sources) Disorder of muscle; Translations: [Myopathy, unspecified] Chronic Other non-traumatic joint disorders (12 sources) Arthropathy; Translations: [Arthropathy, unspecified, site unspecified] Chronic Other non-traumatic joint disorders (4 sources) Arthropathy, unspecified; Translations: [Arthropathy, unspecified] Onset: 04-19-2022 Chronic Other screening for suspected conditions (not mental disorders or infectious disease) (2 sources) Other specified abnormal findings of blood chemistry; Translations: [Other specified abnormal findings of blood chemistry] Onset: 12-02-2021 Episodic Rheumatoid arthritis and related disease (3 sources) Inflammatory polyarthropathy; Translations: [Inflammatory polyarthropathy] Onset: 02-11-2022 Chronic Unclassified (1 source) Primary osteoarthritis, other specified site; Translations: [Primary osteoarthritis, other specified site] Onset: 04-19-2022 Past or Other Problems Problem Classification Problem Date Documented Da te Episodic/Chronic Other connective tissue disease (1 source) Myalgia, other site; Translations: [Myalgia, other site] Onset: 02-11-2022 Episodic Results Test Name Value Interpretation Reference Range Facil ity Vital Signs Date Time Vital Sign Value Performing Clinician Michell burnette 11-15-2022 14:25-0400 Body weight 81.19 kg Bety Muoh DO Work Phone: [facility] 250 DO Work Phone: 11-15-2022 14:25-0400 Diastolic blood pressure 82 mm[Hg] Bety Muoh DO Work Phone: [facility] 250 DO Work Phone: 11-15-2022 14:25-0400 Heart rate 80 /min Bety Muoh DO Work Phone: [facility] 250 DO Work Phone: 11-15-2022 14:25-0400 Systolic blood pressure 153 mm[Hg] Bety Muoh DO Work Phone: [facility] 250 DO Work Phone: 08-16-2022 14:01-0400 Body weight 81.42 kg Bety Muoh DO Work Phone: [facility] 2500 DO Work Phone: 08-16-2022 14:01-0400 Diastolic blood pressure 82 mm[Hg] Bety Muoh DO Work Phone: [facility] 2500 DO Work Phone: 08-16-2022 14:01-0400 Heart rate 82 /min Bety Muoh DO Work Phone: [facility] 2500 DO Work Phone: 08-16-2022 14:01-0400 SaO2% (BldA) [Mass fraction] 96 % Bety Muoh DO Work Phone: [facility] 2500 DO Work Phone: 08-16-2022 14:01-0400 Systolic blood pressure 152 mm[Hg] Bety Muoh DO Work Phone: [facility] 2500 DO Work Phone: 05-03-2022 15:35-0500 Body weight 78.93 kg Bety Muoh DO Work Phone: [facility] Work Phone: 05-03-2022 15:35-0500 Diastolic blood pressure 81 mm[Hg] Bety Muoh DO Work Phone: [facility] Work Phone: 05-03-2022 15:35-0500 Heart rate 83 /min Bety Muoh DO Work Phone: [facility] Work Phone: 05-03-2022 15:35-0500 SaO2% (BldA) [Mass fraction] 96 % Bety Muoh DO Work Phone: [facility] Work Phone: 05-03-2022 15:35-0500 Systolic blood pressure 137 mm[Hg] Bety Muoh DO Work Phone: [facility] Work Phone: 04-19-2022 13:00-0500 Body temperature 98 [degF] Bety Muoh DO Work Phone: [facility] Work Phone: 04-19-2022 13:00-0500 Body weight 78.93 kg Bety Muoh DO Work Phone: [facility] Work Phone: 04-19-2022 13:00-0500 Diastolic blood pressure 88 mm[Hg] Bety Muoh DO Work Phone: [facility] Work Phone: 04-19-2022 13:00-0500 Heart rate 82 /min Bety Muoh DO Work Phone: [facility] Work Phone: 04-19-2022 13:00-0500 SaO2% (BldA) [Mass fraction] 96 % Bety Muoh DO Work Phone: [facility] Work Phone: 04-19-2022 13:00-0500 Systolic blood pressure 149 mm[Hg] Bety Muoh DO Work Phone: [facility] Work Phone: Encounters Encounter Date Encounter Type Care Provider Facility Start: 11-15-2022 Office outpatient vi sit 25 minutes Bety Muoh DO Work Phone: [facility] Work Phone: Start: 11-15-2022 Patient encounter procedure Bety Muoh DO Work Phone: [facility] DO Work Phone: Start: 11-15-[address] Tamia Gonzalez Facil [id number] Start: 10-14-2022 End: 10-14-2022 ambulatory TAMIA MANZANARES [facility] Start: 09-27-2022 End: 09-27-2022 ambulatory TAMIA MANZANARES [facility] Start: 08-27-2022 End: 08-27-2022 ambulatory TAMIA MANZANARES [facility] Start: 08-19-2022 Chart Update Bety Muoh DO Work Phone: [facility] Work Phone: Start: 08-16-2022 Office outpatient vi sit 25 minutes Bety Muoh DO Work Phone: [facility] Work Phone: Start: 08-16-2022 Patient encounter procedure Bety Muoh DO Work Phone: [facility] 2500 DO Work Phone: Start: 08-16-[address] Tamia Gonzalez Facil [id number] Start: 08-03-2022 AUDIT Bety Muoh DO Work Phone: [facility] Work Phone: Start: 06-07-2022 End: 06-07-2022 [facility] Start: 05-03-2022 Office outpatient vi sit 25 minutes Bety Muoh DO Work Phone: [facility] Work Phone: Start: 05-03-2022 ambulatory Bety Muoh Facility:[id number] Start: 04-26-2022 Chart Update Bety Muoh DO Work Phone: [facility] Work Phone: Start: 04-26-2022 Chart Update Bety Muoh DO Work Phone: [facility] Work Phone: Start: 04-21-2022 Chart Update Bety Muoh DO Work Phone: [facility] Work Phone: Start: 04-19-[address] Bety Connors F acility:[id number] Start: 04-19-2022 Office consultation new/estab patient 60 min Bety Muoh DO [facility] Phone[facility] Work Phone: Start: 04-19-2022 Patient encounter procedure Bety Muoh DO Work Phone: [facility] Work Phone: Start: 04-19-[address] Tamia Gonzalez [facility] ity:[id number] Start: 04-19-[address] Halima Santacruz Facility:[facility] Start: 02-11-2022 End: 02-11-2022 ambulatory [facility] Start: 12-02-2021 End: 12-02-2021 ambulatory TAMIA GONZALEZ [facility] Start: 08-08-2017 End: 08-09-2017 Emergency department patient visit TAMIA GONZALEZ Facility:A Plan of Treatment Date Care Activity Detail Author Start: 11-15-2022 FUV, Provider: Muoh,Bety, Status: Pen, Time: 2:20 PM FUV, Provider: Bety Connors, Status: Pen, Time: 2:20 PM [facility] 2500 DO Work Phone: Start: 08-16-2022 FUV, Provider: Bety Connors, Status: Pen, Time: 2:00 PM FUV, Provider: Bety Connors, Status: Pen, Time: 2:00 PM [facility] Work Phone: Start: 05-03-2022 FUV, Provider: Bety Connors, Status: Pen, Time: 3:40 PM FUV, Provider: Bety Connors, Status: Pen, Time: 3:40 PM [facility] Work Phone: Payers Date Payer Category Payer Medicare [id number] 1950 Unknown [id number] 2.16. [id number] 1950 Unknown [id number] 2.16.8 [id number] 1950 Unknown [id number] 2.16.8 [id number] 1950 Unknown [id number] 2.16.8 [id number] 1950 Unknown [id number] 2.16.84 [id number] 1950 Unknown [id number] 2.16.84 [id number] 1950 Unknown [id number] 2.16. [id number] 1950 Unknown [id number] 2.16. [id number] 1950 Unknown [id number] 2.16. [id number] 1950 Unknown [id number] 2.16. [id number] 1950 Unknown [id number] 2.16. [id number] 1948 Unknown [id number] 2.16.84 [id number] 1948 Unknown [id number] 2.16.84 [id number] 1948 Unknown [id number] 2.16.84 [id number] Unknown History of Present illness Narrative Note Date & Type Note Facility History of Present illness Narrative 71 y/o female with Complaint of myalgia present for 2nd opinion. She report she started to have generalized muscle pain worse in her shoulder and Hip girdle. She was having a had time raising her shoulders or taking the stairs.She was having a hard time getting out of bed. She saw her PCP who started her on 40 mg of prednisone and then she was weaned to 20 mg and then 1 month later she was on 15 mg for few months and in one month down to 12.5 mg. She the cut to 10 mg in a few weeks but had a worsen on the symptoms in Dec/January but stabilized without changing her dose. She is still on 10 mg of prednisone and she feels has been 60% improved on this current dose. -[facility] Work Phone: History of Present illness Narrative Note Date & Type Note Facility History of Present illness Narrative 71 y/o female with Complaint of myalgia present for 2nd opinion. She report she started to have generalized muscle pain worse in her shoulder and Hip girdle. She was having a had time raising her shoulders or taking the stairs.She was having a hard time getting out of bed. She saw her PCP who started her on 40 mg of prednisone and then she was weaned to 20 mg and then 1 month later she was on 15 mg for few months and in one month down to 12.5 mg. She the cut to 10 mg in a few weeks but had a worsen on the symptoms in but stabilized without changing her dose. 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 Work Phone: History of Present illness Narrative Note Date & Type Note Facility History of Present illness Narrative 71 y/o female with Complaint of myalgia present for 2nd opinion. She report she started to have generalized muscle pain worse in her shoulder and Hip girdle. She was having a had time raising her shoulders or taking the stairs.She was having a hard time getting out of bed. She saw her PCP who started her on 40 mg of prednisone and then she was weaned to 20 mg and then 1 month later she was on 15 mg for few months and in one month down to 12.5 mg. She the cut to 10 mg in a few weeks but had a worsen on the symptoms in but stabilized without changing her dose. 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 No acute complaints here to review lab work [facility] Work [facility]: History of Present illness Narrative Note Date & Type Note Facility History of Present illness Narrative 71 y/o female with Complaint of myalgia present for 2nd opinion. She report she started to have generalized muscle pain worse in her shoulder and Hip girdle. She was having a had time raising her shoulders or taking the stairs.She was having a hard time getting out of bed. She saw her PCP who started her on 40 mg of prednisone and then she was weaned to 20 mg and then 1 month later she was on 15 mg for few months and in one month down to 12.5 mg. She the cut to 10 mg in a few weeks but had a worsen on the symptoms in but stabilized without changing her dose. 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 No acute complaints here to review lab work with her daughter [facility] 2500 DO Work Phone: History of Present illness Narrative Note Date & Type Note Facility History of Present illness Narrative 71 y/o female with Complaint of myalgia present for 2nd opinion. She report she started to have generalized muscle pain worse in her shoulder and Hip girdle. She was having a had time raising her shoulders or taking the stairs.She was having a hard time getting out of bed. She saw her PCP who started her on 40 mg of prednisone and then she was weaned to 20 mg and then 1 month later she was on 15 mg for few months and in one month down to 12.5 mg. She the cut to 10 mg in a few weeks but had a worsen on the symptoms in but stabilized without changing her dose. 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 She deals with stiffness in her legs after walking a long periods of time -[facility] Work Phone: History of Present illness Narrative Note Date & Type Note Facility History of Present illness Narrative 71 y/o female with Complaint of myalgia present for 2nd opinion. She report she started to have generalized muscle pain worse in her shoulder and Hip girdle. She was having a had time raising her shoulders or taking the stairs.She was having a hard time getting out of bed. She saw her PCP who started her on 40 mg of prednisone and then she was weaned to 20 mg and then 1 month later she was on 15 mg for few months and in one month down to 12.5 mg. She the cut to 10 mg in a few weeks but had a worsen on the symptoms in but stabilized without changing her dose. 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 She deals with stiffness in her legs after walking a long periods of time -[facility] 250 DO Work Phone: History of Present illness Narrative Note Date & Type Note Facility History of Present illness Narrative 71 y/o female with Complaint of myalgia present for 2nd opinion. She report she started to have generalized muscle pain worse in her shoulder and Hip girdle. She was having a had time raising her shoulders or taking the stairs.She was having a hard time getting out of bed. She saw her PCP who started her on 40 mg of prednisone and then she was weaned to 20 mg and then 1 month later she was on 15 mg for few months and in one month down to 12.5 mg. She the cut to 10 mg in a few weeks but had a worsen on the symptoms in Dec/January but stabilized without changing her dose. 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 She had lumbar spine imaging and was found to have spinal stenosis, she has noticed bruising in her forearms -[facility] Work Phone: Summary Purpose Family History No Family History Records FoundNo Family History Records FoundNo Family History Records FoundNo Family History Records FoundNo Family History Records FoundNo Family History Records Found Advance Directives No Advanced Directives Records FoundNo Advanced Directives Records FoundNo Advanced Directives Records FoundNo Advanced Directives Records FoundNo Advanced Directives Records FoundNo Advanced Directives Records Found Chief Complaint new patient visit to discuss inflammation in bodynew patient visit to discuss inflammation in bodyfollow upFUVFUVfollow up for being off of prednisonefollow up for being off of prednisone Additional Source Comments INFORMATION SOURCE (unrecogn ized section and content) DATE CREATED AUTHOR AUTHOR'S ORGANIZ ATION 12/04/2020 [facility] DATE CREATED AUTHOR AUTHOR'S ORGANIZ ATION 04/24/2022 [facility] DATE CREATED AUTHOR AUTHOR'S ORGANIZ ATION [facility]2022 [facility] DATE CREATED AUTHOR AUTHOR'S ORGANIZ ATION 11/17/2022 [facility] DATE CREATED AUTHOR AUTHOR'S ORGANIZ ATION 11/18/2022 [facility] FOR RECORDS PERTAINING TO PATIENTS WHO ARE OR HAVE BEEN ENROLLED IN A CHEMICAL DEPENDENCY/SUBSTANCEABUSE PROGRAM, SOME INFORMATION MAY BE OMITTED. This clinical summary was aggregated from multiple sources. Caution should be exercised in using it in the provision of clinical care. This summary normalizes information from multiple sources, and as a consequence, information in this document may materially change the coding, format and clinical context of patient data. In addition, data may be omitted in some cases. CLINICAL DECISIONS SHOULD BE BASED ON THE PRIMARY CLINICAL RECORDS. [employer] provides no warranty or guarantee of the accuracy or completeness of information in this document.
== END | disposition home or self-care (01) ==
PROVIDERS: PCP Internal Medicine; Referring Provider Internal Medicine; Visit Provider Internal Medicine
DX: Z12.31 Encounter for screening mammogram for malignant neoplasm of breast (principal)
CPT/HCPCS: 77063; 77067

== ENCOUNTER → 2023-05-04 | Outpatient (CLI) | payer MEDICARE, SELFPAY ==
--- NOTE | 2023-05-04 13:04 | BD_ITS ---
STUDY: DUAL ENERGY X-RAY ABSORPTIOMETRY / DXA REASON FOR EXAM: Female, 72 years old. M81.0 TECHNIQUE: Bone Mineral Density (BMD) measurements of lumbar spine and bilateral hips were obtained. COMPARISON: None. FINDINGS: Lumbar Spine (L1-L4): g/cm2 (0.944) / T-score (-0.9) / Z-score (1.3) Findings are suggestive of normal bone density with a low fracture risk. Left Femur Total: g/cm2 (0.784) / T-score (-1.3) / Z-score (0.3) Left Femoral Neck: g/cm2 (0.565) / T-score (-2.6) / Z-score (-0.7) Right Femur Total: g/cm2 (0.828) / T-score (-0.9) / Z-score (0.6) Right Femoral Neck: g/cm2 (0.580) / T-score (-2.4) / Z-score (-0.6) The T-Scores on the most recent prior examination were: Lumbar Spine (L1-L4): There has been worsening of bone density since the previous examination. Left Femur Total: which represents a worsening of 16%. Right Femur Total: which represents a worsening of 11.9%. BD/Dexa Bone Density Study IMPRESSION: The patient is considered osteoporotic as outlined below according to World Brian Organization (WHO) criteria with a high fracture risk. There has been worsening of bone density since the previous examination. Reference Information: The T-score is the number of standard deviations above or below the standard which is normal for young adults at their peak bone mineral density. The World Health Organization (WHO) interprets the T-scores as follows: Above -1 Normal bone density Between -1 and -2.5 Osteopenia Equal to / or below -2.5 Osteoporosis As a practical clinical guideline, osteopenia may be graded as follows: Mild -1 through -1.5 Moderate -1.6 through -2.0 Severe -2.1 through -2.4 The Z-score is the number of standard deviations above or below age-matched controls. A Z-score of less than -1.5 would be considered abnormal. References: 1. NIH Osteoporosis and Related Bone Diseases www osteo.org 2. International Society for Clinical Densitometry www iscd.org 3. National Osteoporosis Foundation www nof.org Electronically Signed: Cj Wei MD at 14:57 EDT ,
--- OUTSIDE RECORDS SUMMARY | 2023-05-04 16:35 | XMS RPT_ITS | CCD ---
Author Name Unknown Address [address] [place] [address] Organization [facility] Care Team Providers Care Mail Rider Name Role Phone JULIA GONZALEZROS Unavailable Unavailable PASHA PASTOR Unavailable Unavailable LATOUF, DULCE MARIA Unavailable Unavailable Unavailable Unavailable Dory, Dr. Bety Mayen Referring Unavailab le Muoh, Dr. Bety Mayen Attending Unavailab le Latouf, Dr. Cantrell Primary Care Unavailable Latouf, [...] Attending Unavailable Latouf, Dr. Cantrell Referring Unavailable LATOUF DR DULCE MARIA MANZANARES Primary Care Physician Nohelia Rounding Nurse, Leno Unavailable Bjorn Murray Unavailable Unavailable Latouf Dulce Maria MANZANARES Primary Care Provider [phone] MUOHDEXBETY H Attending Unavailable DULCE MARIA GONZALEZ Primary Care Unavailable LATOUF, DULCE MARIA Primary Care Unavailable LATOUGonzález, DULCE MARIA MANZANARES Primary Care Unavailable LATOUGonzález, DULCE MARIA MANZANARES Consulting Unavailable LATOUF, DULCE MARIA MANZANARES Attending Unavailable LATOUF, DULCE MARIA MANZANARES Admitting Unavailable PROVIDER, UNKNOWN Consulting Unavailable PROVIDER, UNKNOWN Consulting Unavailable PROVIDER, UNKNOWN Consulting Unavailable LATOUF, BUTROS MD Consulting Unavailable LATOUGonzález, DULCE MARIA MANZANARES Attending Unavailable LATOUGonzález, DULCE MARIA MANZANARES Admitting Unavailable LATMARION, DULCE MARIA MANZANARES Primary Care Unavailable PROVIDER, UNKNOWN Consulting Unavailable PROVIDER, UNKNOWN Consulting Unavailable PROVIDER, UNKNOWN Consulting Unavailable LATOUGonzález, DULCE MARIA MANZANARES Consulting Unavailable LATOUF, DULCE MARIA MANZANARES Attending Unavailable LATOUF, DULCE MARIA MANZANARES Admitting Unavailable LATMARION, DULCE MARIA MANZANARES Primary Care Unavailable PROVIDER, UNKNOWN Consulting Unavailable PROVIDER, UNKNOWN Consulting Unavailable PROVIDER, UNKNOWN Consulting Unavailable KRYSTAL JONES MD Primary Care Unavailable KRYSTAL JONES MD Attending Unavailable LATOUF, DULCE MARIA MANZANARES Consulting Unavailable KRYSTAL JONES MD Admitting Unavailable PROVIDER, UNKNOWN Consulting Unavailable PROVIDER, UNKNOWN Consulting Unavailable PROVIDER, UNKNOWN Consulting Unavailable LATOUF, DULCE MARIA MANZANARES Primary Care Unavailable LATOUF, DULCE MARIA MANZANARES Consulting Unavailable LATOUF, DULCE MARIA MANZANARES Attending Unavailable LATOUF, DULCE MARIA MANZANARES Admitting Unavailable PROVIDER, UNKNOWN Consulting Unavailable PROVIDER, UNKNOWN Consulting Unavailable PROVIDER, UNKNOWN Consulting Unavailable LATOUGonzález, DULCE MARIA MANZANARES Primary Care Unavailable LATOUF, DULCE MARIA MANZANARES Attending Unavailable LATOUF, DULCE MARIA MANZANARES Admitting Unavailable LATOUF, DULCE MARIA MANZANARES Consulting Unavailable PROVIDER, UNKNOWN Consulting Unavailable PROVIDER, UNKNOWN Consulting Unavailable PROVIDER, UNKNOWN Consulting Unavailable LATOUF, DULCE MARIA MANZANARES Primary Care Unavailable LATOUF, DULCE MARIA MANZANARES Consulting Unavailable LATOUF, DULCE MARIA MANZANARES Attending Unavailable LATOUF, DULCE MARIA MANZANARES Admitting Unavailable PROVIDER, UNKNOWN Consulting Unavailable PROVIDER, UNKNOWN Consulting Unavailable PROVIDER, UNKNOWN Consulting Unavailable Allergies Allergy Classification Reported Allergen(s) Allergy Type Date of Onset Reaction(s) Facility (16 sources) Aspirin; Translations: [aspirin] Drug Allergy 04-04-2023 Unknown [facility] (13 sources) dilTIAZem; Translations: [Cardizem] Drug Allergy [facility] (16 sources) NIFEdipine; Translations: [NIFEdipine] Drug Allergy 04-04-2023 Unknown [facility] (3 sources) dilTIAZem; Translations: [DILTIAZEM HCL] Drug Allergy 04-04-2023 Unknown [facility] Work Phone: (1 source) dilTIAZem Drug Allergy [facility] Repository Medications Current Medications Medication Drug Class(es) Dates Sig (Normalized) Sig (Original) cmwsyfl-lzrailcsd-tha D3-boron 400 mg-133 mg- 6.67 mcg-1 mg capsule (1 source) take 6.67 capsules b y mouth once daily wceiwmp-uqtcbwmfk-up t D3-boron 400 mg-133 mg- 6.67 mcg-1 mg capsule Take 1,800 mg by mouth once daily. 0 Active Cinnamon Bark (13 sources) cinnamon bark (CINNAMON ORAL) Take by mouth. 0 Active Completed/Discontinued Medications Medication Drug Class(es) Dates Sig (Normalized) Sig (Original) Calcium (12 sources) Phosphate Binder, Calcium Calcium TABS Quantity: 0 Refills: 0 Ordered: 19-Apr-2022 DO Active docosahexaenoic acid 120 mg / eicosapentaenoic acid 180 mg oral capsule (12 sources) [place] 3 1000 MG Oral Capsule Quantity: 0 [...] weeks Quantity: 30 Refills: 0 Ordered: 16-Aug-2022 Bety Connors DO Start : 03-Aug-2022 Active Problems Active Problems Problem Classification Problem Date Documented Date Episodic/Chronic Coagulation and hemorrhagic disorders (2 sources) Easy bruising; Translations: [Spontaneous ecchymoses] Episodic Coronary atherosclerosis and other heart disease (4 sources) Coronary atherosclerosis; Translations: [Atherosclerotic heart disease of [place] coronary artery without angina pectoris] Onset: 03-28-2023 Chronic Diabetes mellitus without complication (3 sources) Type 2 diabetes mellitus without complication; Translations: [Type 2 diabetes mellitus without complications] Onset: 06-07-2022 Chronic Disorders of lipid metabolism (6 sources) Hyperlipidemia; Translations: [Hyperlipidemia, unspecified] Onset: 06-07-2022 Chronic Essential hypertension (2 sources) Essential hypertension; Translations: [Essential (primary) hypertension] Onset: 03-28-2023 Chronic Fluid and electrolyte disorders (3 sources) Hypo-osmolality and hyponatremia; Translations: [Hypo-osmolality and hyponatremia] Onset: 04-05-2023 Episodic Nutritional deficiencies (17 sources) Vitamin D deficiency; Translations: [Unspecified vitamin D deficiency] Onset: 04-04-2023 04-04-2023 Chronic Osteoarthritis (5 sources) Primary osteoarthritis, left hand; Translations: [Primary osteoarthritis, left wrist] Onset: 04-19-2022 Chronic Other connective tissue disease (1 source) Muscle pain; Translations: [Myalgia, unspecified site] 04-04-2023 Episodic Other connective tissue disease (4 sources) Myalgia, unspecified site; Translations: [Myalgia, unspecified site] Onset: 04-04-2023 Episodic Other nervous system disorders (12 sources) Disorder of muscle; Translations: [Myopathy, unspecified] Chronic Other non-traumatic joint disorders (12 sources) Arthropathy; Translations: [Arthropathy, unspecified, site unspecified] Chronic Other non-traumatic joint disorders (4 sources) Arthropathy, unspecified; Translations: [Arthropathy, unspecified] Onset: 04-19-2022 Chronic Rheumatoid arthritis and related disease (1 source) Inflammatory polyarthropathy 02-02-2022 Chronic Syncope (3 sources) Syncope and collapse; Translations: [Syncope and collapse] Onset: 03-28-2023 Episodic Unclassified (1 source) Primary osteoarthritis, other specified site; Translations: [Primary osteoarthritis, other specified site] Onset: 04-19-2022 Past or Other Problems Problem Classification Problem Date Documented Da te Episodic/Chronic Other screening for suspected conditions (not mental disorders or infectious disease) (1 source) Other specified abnormal findings of blood chemistry; Translations: [Other specified abnormal findings of blood chemistry] Onset: 09-27-2022 Episodic Results Test Name Value Interpretation Reference Range Facil ity Vital Signs Date Time Vital Sign Value Performing Clinician Facility 04-04-2023 14:33-0500 Body height 163.8 cm [employer] Work Phone: [facility] 04-04-2023 14:33-0500 Body mass index (BMI) [Ratio] 30.42 kg/m2 Exclusively[employer]in DO Work Phone: [facility] 04-04-2023 14:33-0500 Body weight 81.65 kg [employer] Work Phone: [facility] 04-04-2023 14:33-0500 Diastolic blood pressure 79 mm[Hg] Bety Muoh DO Work Phone: [facility] 04-04-2023 14:33-0500 Heart rate 90 /min Bety Muoh DO Work Phone: [facility] 04-04-2023 14:33-0500 Systolic blood pressure 112 mm[Hg] Bety Muoh DO Work Phone: [facility] 03-29-2023 10:51-0500 Heart rate 86 /min DR VIKKI MEJIA MD [address] [place] [address] 03-29-2023 10:26-[address] Pressure Cuff Size DR VIKKI MEJIA MD [address] 03-29-2023 10:26-[address] VIKKI MEJIA MD [address] [place] [address] 03-29-2023 10:26-[address] VIKKI MEJIA MD [address] [place] [address] 03-29-2023 10:26-0500 Body temperature 98.24 [degF] DR VIKKI MEJIA MD [address] [place] [address] 03-29-2023 10:26-0500 Diastolic Blood Pressure Non-Invasive 64 mm[Hg] DR VIKKI MEJIA MD [address] [place] [address] 03-29-2023 10:26-0500 Heart rate 81 /min DR VIKKI MEJIA MD [address] [place] [address] 03-29-2023 10:26-0500 Reason For Taking VItal Signs DR VIKKI MEJIA MD [address] [place] [address] 03-29-2023 10:26-0500 Respiratory rate 18 /min DR VIKKI MEJIA MD [address] [place] [address] 03-29-2023 10:26-0500 Systolic Blood Pressure Non-Invasive 122 mm[Hg] DR VIKKI MEJIA MD [address] [place] [address] 03-29-2023 07:58-0500 Heart rate 90 /min DR VIKKI MEJIA MD [address] [place] [address] 03-29-2023 07:16-[address] Cuff Size DR VIKKI MEJIA MD [address] [place] [address] 03-29-2023 07:16-[address] VIKKI MEJIA MD [address] [place] [address] 03-29-2023 07:16-[address] VIKKI MEJIA MD [address] [place] [address] 03-29-2023 07:16-0500 Body temperature 98.24 [degF] DR VIKKI MEJIA MD [address] [place] [address] 03-29-2023 07:16-0500 Diastolic Blood Pressure Non-Invasive 76 mm[Hg] DR VIKKI MEJIA MD [address] [place] [address] 03-29-2023 07:16-0500 Heart rate 76 /min DR VIKKI MEJIA MD [address] [place] [address] 03-29-2023 07:16-0500 Reason For Taking VItal Signs DR VIKKI MEJIA MD [address] [place] [address] 03-29-2023 07:16-0500 Respiratory rate 18 /min DR VIKKI MEJIA MD [address] [place] [address] 03-29-2023 07:16-0500 Systolic Blood Pressure Non-Invasive 146 mm[Hg] DR VIKKI MEJIA MD [address] [place] [address] 03-29-2023 02:45-[address] Cuff Size DR VIKKI MEJIA MD [address] [place] [address] 03-29-2023 02:45-[address] VIKKI MEJIA MD [address] [place] [address] 03-29-2023 02:45-[address] VIKKI MEJIA MD [address] [place] [address] 03-29-2023 02:45-0500 Body temperature 98.6 [degF] DR VIKKI MEJIA MD [address] [place] [address] 03-29-2023 02:45-0500 Diastolic Blood Pressure Non-Invasive 74 mm[Hg] DR VIKKI MEJIA MD [address] [place] [address] 03-29-2023 02:45-0500 Heart rate 86 /min DR VIKKI MEJIA MD [address] [place] [address] 03-29-2023 02:45-0500 Reason For Taking VItal Signs DR VIKKI MEJIA MD [address] [place] [address] 03-29-2023 02:45-0500 Respiratory rate 16 /min DR VIKKI MEJIA MD [address] [place] [address] 03-29-2023 02:45-0500 Systolic Blood Pressure Non-Invasive 130 mm[Hg] DR VIKKI MEJIA MD [address] [place] [address] 03-28-2023 14:31-0500 Body height 162.[address] VIKKI MEJIA MD [address] [place] [address] 03-28-2023 14:31-0500 Body weight 83.[address] VIKKI MEJIA MD [address] [place] [address] 03-28-2023 14:31-0500 Body weight 31.51 kg/m2 DR VIKKI MEJIA MD [address] [place] [address] 03-28-2023 14:01-0500 Heart rate 80 /min DR VIKKI MEJIA MD [address] [place] [address] 03-27-2023 19:20-0500 Body weight 83.[address] VIKKI MEJIA MD [address] [place] [address] 11-15-2022 14:25-0400 Body weight 81.19 kg Bety Muoh DO Work Phone: [facility] 250 DO Work Phone: 11-15-2022 14:25-0400 Diastolic blood pressure 82 mm[Hg] Bety Muoh DO Work Phone: [facility] 250 DO Work Phone: 11-15-2022 14:25-0400 Heart rate 80 /min Bety Muoh DO [facility] Work Phone: 11-15-2022 14:25-0400 Systolic blood pressure 153 mm[Hg] Bety Muoh DO [facility] Work Phone: 08-16-2022 14:01-0400 Body weight 81.42 kg Bety Muoh DO Work Phone: [facility] 2500 DO Work Phone: 08-16-2022 14:01-0400 Diastolic blood pressure 82 mm[Hg] Bety Muoh DO Work Phone: [facility] 2500 DO Work Phone: 08-16-2022 14:01-0400 Heart rate 82 /min Bety Muoh DO Work Phone: [facility] 2500 DO Work Phone: 08-16-2022 14:01-0400 SaO2% (BldA) [Mass fraction] 96 % Bety Muoh DO Work Phone: [facility] 2500 DO Work Phone: 08-16-2022 14:01-0400 Systolic blood pressure 152 mm[Hg] Bety Muoh DO Work Phone: [facility] 2500 DO Work Phone: 05-03-2022 15:35-0500 Body weight 78.93 kg Bety Muoh DO Work Phone: [facility] Work Phone: 05-03-2022 15:35-0500 Diastolic blood pressure 81 mm[Hg] Bety Muoh DO Work Phone: [facility] Work Phone: 05-03-2022 15:35-0500 Heart rate 83 /min Ebty Muoh DO Work Phone: [facility] Work Phone: 05-03-2022 15:35-0500 SaO2% (BldA) [Mass fraction] 96 % Bety Muoh DO Work Phone: [facility] Work Phone: 05-03-2022 15:35-0500 Systolic blood pressure 137 mm[Hg] Bety Muoh DO Work Phone: [facility] Work Phone: 04-19-2022 13:00-0500 Body temperature 98 [degF] Bety Muoh DO Work Phone: [facility] Work Phone: 04-19-2022 13:00-0500 Body weight 78.93 kg Bety Muoh DO Work Phone: [facility] Work Phone: 04-19-2022 13:00-0500 Diastolic blood pressure 88 mm[Hg] Bety Muoh DO Work Phone: [facility] Work Phone: 04-19-2022 13:00-0500 Heart rate 82 /min Bety Muoh DO Work Phone: [facility] Work Phone: 04-19-2022 13:00-0500 SaO2% (BldA) [Mass fraction] 96 % Bety Connors DO Work Phone: [facility] Work Phone: 04-19-2022 13:00-0500 Systolic blood pressure 149 mm[Hg] Bety Connors DO Work Phone: [facility] Work Phone: Encounters Encounter Date Encounter Type Care Provider Facility Start: 04-18-2023 End: 04-18-2023 ambulatory DULCE MARIA MANZANARES [facility] Start: 04-18-2023 End: 04-18-2023 ambulatory KRYSTAL MANZANARES [facility] Start: 04-05-2023 End: 04-05-2023 ambulatory DULCE MARIA MANZANARES [facility] Start: 04-04-2023 End: 04-05-2023 ambulatory [facility] Start: 04-04-2023 End: 04-04-2023 Office outpatient visit 25 minutes [facility] Work Phone: [facility] Procedures Date Procedure Procedure Detail Performing Clinician Start: 04-04-2023 ANTONY + GARIMA PANEL BUTROS LATOUF Start: 04-04-2023 ANTONY WITHOUT REFLEX GARIMA BUTROS LATOUF Start: 04-04-2023 C-reactive protein BUTR OS LATOUF Start: 04-04-2023 CITRULLINE ANTIBODY, IGG BUTROS LATOUF Start: 04-04-2023 Creatine kinase [Enz ymatic activity/volume] in Serum or Plasma BUTROS LATOUF Start: 04-04-2023 GARIMA PANEL BUTROS LAT OUF Start: 04-04-2023 RHEUMATOID FACTOR BUTRO S LATOUF Start: 04-04-2023 SEDIMENTATION RATE, AUTOMATED BUTROS LATOUF Start: 04-04-2023 VITAMIN D 25-HYDROXY,TOTAL BUTROS LATOUF Start: 02-11-[address] RAMON MEJIA MD Start: 02-09-[address] VIKKI MEJIA MD Start: 04-26-[address] VIKKI MEJIA MD Cholecystectomy DR VIKKI FREED MD Decompression of median nerve DR VIKKI MEJIA MD Ligation of fallopian tube D R VIKKI MEJIA MD Plan of Treatment Date Care Activity Detail Author Start: 06-13-2023 End: 06-13-2023 Patient encounter procedure 06/13/2023 2:40 PM EDT Office Visit [facility] [address] [place] [address] Bety Connors DO [address] [facility] [address] [place] [address] [facility] Start: 06-08-2023 Hemoglobin A1c measurement Diabetes: Hemoglobin A1C [facility] Start: 04-04-2023 End: 04-04-2024 25-hydroxyvitamin D3 [Mass/volume] in Serum or Plasma [facility] Work Phone: Payers Date Payer Category Payer Medicare [facility] RE [facility] [id number] 2022-Present [address] [place] [address] [id number] 2017 Medicare [id number] 1950 Unknown [id number] 1950 Unknown [id number] [id number] 1950 Unknown [id number] [id number] 1950 Unknown [id number] [id number] 1950 Unknown [id number] [id number] 1950 Unknown [id number] [id number] 1950 Unknown [id number] [id number] 4 1950 Unknown [id number] [id number] 5 1950 Unknown [id number] [id number] 1950 Unknown [id number] [id number] 1951 Unknown [id number] [id number] 1950 Unknown [id number] [id number] 1950 Unknown [id number] [id number] 1950 Unknown [id number] [id number] 1948 Unknown [id number] [id number] Unknown Social History Date Type Detail Facility Start: 02-01-2022 Tobacco smoking status Never smoked tobacco (finding) [facility] Sex Assigned At Sex [facility] Tobacco smoking status NYIS Tobacco smoking consumption unknown [facility] Work Phone: Start: 1950 Sex Assigned At Not on file [facility] Work Phone: Gender identity Not on file [facility] Work Phone: Start: 03-25-2023 End: 04-04-2023 Exposure to SARS-CoV-2 (event) Not sure [facility] Work Phone: Functional Status Date Assessment Result Facility 03-29-2023 Functional Status Room check performed [facility] 03-29-2023 Functional Status [facility] 03-29-2023 Functional Status Nurse Safety Cinthia segundo q2hrs Performed 11pm-3am [facility] 03-28-2023 Functional Status [facility] 03-27-2023 Functional Status Ambulation Ambulation i n Room [facility] Mental Status Date Assessment Result Facility 03-29-2023 Mental Status Oriented x 4 [facility] 03-28-2023 Mental Status [facility] 03-27-2023 [facility] Clinical Notes 03-27-2023 to 04-04-2023 Bety Connors DO - 04/04/2023 2:20 PM EST Note Date & Type Note Facility 04-04-2023 History of Present illness Narrative Follow-up Rheumatology Patient Visit Chief Complaint: Bjorn Gurrola is a 72 y.o. female presenting today for Follow-up. History of Presenting Problem: 72 y/o female with Hx of myalgia present follow up. Hx of generalized muscle pain worse in her shoulder [...] had a worsen on the symptoms in January 2022 but stabilized without changing her dose. She is still on 10 mg of prednisone and she feels has been 60% improved on this current dose. Initial visit at this office started March 2022. 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 Today she follows up after hospitalization a couple weeks ago, she was recently admitted to the hospital for cardiac event after having syncopal episode. she is feeling more achy in her biceps and her quadriceps. She is also back on her cholesterol medicine as her cholesterol went up when she was off his medication Problem List: There is no problem list on file for this patient. Past Medical History: No past medical history on file. Surgical History: No past surgical history on file. Allergies: Allergies Allergen Reactions Aspirin Unknown Diltiazem Hcl Unknown Nifedipine Unknown Medications: Current Outpatient Medications: jvxanxh-llqgefblf-ltr D3-boron 400 mg-133 mg- 6.67 mcg-1 mg capsule, Take 1,800 mg by mouth once daily., Disp: , Rfl: cinnamon bark (CINNAMON ORAL), Take by mouth., Disp: , Rfl: co-enzyme Q-10 30 mg capsule, Take 1 capsule (30 mg) by mouth once daily., Disp: , Rfl: cranberry 400 mg capsule, Take by mouth., Disp: , Rfl: FLAXSEED ORAL, Take by mouth., Disp: , Rfl: isosorbide dinitrate (Isordil) 30 mg tablet, Take 1 tablet (30 mg) by mouth once daily., Disp: , Rfl: multivitamin tablet, Take 1 tablet by mouth once daily., Disp: , Rfl: omega-3 acid ethyl esters (Lovaza) 1 gram capsule, Take 1 capsule (1 g) by mouth 2 times a day., Disp: , Rfl: rosuvastatin (Crestor) 5 mg tablet, Take 1 tablet (5 mg) by mouth once daily., Disp: , Rfl: tetrahydrozoline-zinc (Eye Drops A.C.) 0.05-0.25 % ophthalmic solution, 2 drops 3 times a day as needed., Disp: , Rfl: UNABLE TO FIND, once daily. Med Name: nattozimes, Disp: , Rfl: UNABLE TO FIND, Med Name: colustrum, Disp: , Rfl: verapamil (Calan) 120 mg tablet, Take 1 tablet (120 mg) by mouth once daily., Disp: , Rfl: Objective Physical Examination: Visit Vitals BP 112/79 Pulse 90 Ht 1.638 m (5' 4.5 ) Wt 81.6 kg (180 lb) BMI 30.42 kg/m BSA 1.93 m Gen: NAD, A&O x 3 HEENT: clear sclera and conjunctiva, Musculoskeletal: Neck; WNL, full ROM Shoulder: WNL, full ROM Elbow:WNL, full ROM, no effusion noted Wrist and fingers;no active synovitis noted, Full ROM in the Wrist , Good fist and transportation department head Knees: No effusions or crepitation, full ROM. Hips; WNL, full ROM, Negative Justus test Ankle, Feet; WNL, full ROM Skin: No rashes or lesions seen, no nail changes Neuro: A&O x3, Normal Gait Procedures :None Orders: Orders Placed This Encounter Procedures C-Reactive Protein Sedimentation Rate Creatine Kinase Vitamin D 25-Hydroxy,Total (for eval of Vitamin D levels) Rheumatoid Factor Citrulline Antibody, IgG ANTONY + GARIMA Panel Provider Impression: Assessment/Plan Encounter Diagnoses Name Primary? Myalgia Yes Vitamin D deficiency 72-year-old female with history of myalgia/arthralgia presents for evaluation. She does report myalgia primarily located in the shoulder and hip girdle muscle regions which is suspicious for PMR but patient has had suboptimal response to steroids. she had seen a different marking machine operator in the past that suggested methotrexate which she refused. She was able to wean off steroids by almost a 2022. Today she is complaining of myalgias for the past 2 weeks, she was recently admitted to the hospital for cardiac event after having syncopal episode -Monitor off steroids, okay to take Tylenol 1000 mg 3 times a day -Encourage calcium and vitamin D -Check inflammatory markers and additional serologies -Agree with follow-up for spinal stenosis with surgery/pain management -Follow-up based on results documented in this encounter [facility] Work Phone: 03-29-2023 Discharge summary Date of Service 03/29/2023 Discharge Diagnosis 1. Syncopal episode 2. Coronary artery disease 3. Coronary vasospasm 4. Hyperlipidemia 5. Type 2 diabetes mellitus Hospital Course 72-year-old female with PMHx CAD, coronary vasospasm, HLD, HTN, DM2 presented to the ED for syncopal episode. The patient stated that she was sitting in [employer] when she became very warm, had sweating, was lightheaded and then lost consciousness. As per patient's , she lost consciousness for about 10 to 15 seconds. No seizure-like activity. 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 She was recommended to follow 1800 mL free water restriction per day. She needs repeat BMP as outpatient in 1 week. She was complaining of runny nose which is present for 2 days and nasal congestion, prescribed Claritin and Flonase at discharge. Allergies Cardizem NIFEdipine aspirin Consults No qualifying data available. Imaging Results and Diagnostics CT Head or Brain w/o Contrast Result Date: March 28, 2023 Verified By: RADHA SALAZAR MD CLINICAL STATEMENT: IMPRESSION: No acute intracranial abnormalities. Aerated secretions in the ethmoid and sphenoid sinuses which may be seen withacute sinusitis in the appropriate clinical setting. I have personally reviewed the images of this examination and agree with theresident's findings and interpretation. XR Chest 1 View Result Date: March 27, 2023 Verified By: CHESTER DUARTE MD CLINICAL STATEMENT: IMPRESSION: No acute abnormality is identified. Physical Exam Vitals and Measurements T: 36.8 C (Oral) TMIN: 36.8 C (Oral) TMAX: 37.8 C (Oral) HR: 86(Monitored) RR: 18 BP: 122/64 BP: 134/83(Sitting) BP: 126/84(Standing) BP: 146/76(Supine) SpO2: 94% Weight Dosing Weight: 83.3 kg (03/28/23) Dosing Weight: 83.3 kg (03/27/23) General Appearance: Patient appears healthy, well-developed, not in any acute distress. Cardiac: Normal rate and rhythm, S1-S2 heard, no murmurs heard. Lungs: Clear on auscultation bilaterally, no wheezes or rales. Abdomen: Soft nontender, nondistended, no organomegaly. Extremities: No pedal edema. Neurological: Alert ,oriented, moving all extremities antigravity Skin: No rashes noted. Psychiatric: Not anxious or depressed. Code Status No qualifying data available. Admission Date 03/27/2023 Discharge Date 03/29/2023 Medications New Prescription fluticasone nasal (Flonase 50 mcg/inh nasal spray)2 spray(s) each nostril once a day (in the morning) for 7 Days. Refills: 0. loratadine (Claritin 10 mg oral tablet)1 tab(s) by mouth once a day for 10 Days. Refills: 2. Unchanged isosorbide mononitrate (isosorbide mononitrate 30 mg oral tablet, extended release)1 tab(s) by mouth once a day. latanoprost ophthalmic (latanoprost 0.005% ophthalmic solution)1 Drops Both eyes daily at bedtime. multivitamin (Multivitamin)1 tab(s) by mouth once a day. rosuvastatin (rosuvastatin 10 mg oral tablet)0.5 tab(s) by mouth daily at bedtime. verapamil (verapamil 120 mg/12 hours oral tablet, extended release)1 tab(s) by mouth once a day. Follow Up Follow Up with KRYSTAL JONES MD When Why: Follow-up in 2 weeks Where: [address] [place] [address] [address] [facility] [place] [address]- [phone] Follow Up with DULCE MARIA GONZALEZ MD, Internal Medicine When Within 1-2 days Why: Please call the office to schedule a follow-up appointment Where: [facility] [address] [place] [address]- Follow Up Appointments No qualifying data available. Follow Up Labs/Studies Discharge Labs Discharge Outpatient Labwork - Ordered -- BMP, HYPONATREMIA, follow-up within: 1 week, Results Notify to: DULCE MARIA GONZALEZ MD, 03/29/23 11:41:00 EST Discharge Studies No Follow-up Studies Discharge Diet Discharge Diet - Ordered -- Type of Diet: Regular, Calories Permitted: 1800 kcal, 1800 ml free water restriction per day, 03/29/23 11:41:00 EST Discharge Activity Discharge Activity - Ordered -- Resume your pre-hospitalization activity, 03/29/23 11:41:00 EST Condition on Discharge Stable Discharge Disposition Home Time Spent More than 30 minutes spent in discharge planning Digitally Signed by ALEXANDER VALENCIA MD on 03/29/2023 06:20 PM [facility] 03-29-2023 Hospital Discharge instructions Patient Education 03/29/2023 12:18:39 Syncope, Gjdp-ju-Zixq Syncope Syncope is when you pass out (faint) for a short time. It is caused by a sudden decrease in blood flow to the brain. Signs that you may be about to pass out include: Feeling dizzy or light-headed. Feeling sick to your stomach (nauseous). Seeing all white or all black. Having cold, clammy skin. If you pass out, get help right away. Call your local emergency services (911 in the [place] Do not drive yourself to the hospital. Follow these instructions at home: Watch for any changes in your symptoms. Take these actions to stay safe and help with your symptoms: Lifestyle Do not drive, use machinery, or play sports until your doctor says it is okay. Do not drink alcohol. Do not use any products that contain nicotine or tobacco, such as cigarettes and e-cigarettes. If you need help quitting, ask your doctor. Drink enough fluid to keep your pee (urine) pale yellow. General instructions Take yfri-cqt-mreuxhw and prescription medicines only as told by your doctor. If you are taking blood pressure or heart medicine, sit up and stand up slowly. Spend a few minutes getting ready to sit and then stand. This can help you feel less dizzy. Have someone stay with you until you feel stable. If you start to feel like you might pass out, lie down right away and raise (elevate) your feet above the level of your heart. Breathe deeply and steadily. Wait until all of the symptoms are gone. Keep all follow-up visits as told by your doctor. This is important. Get help right away if: You have a very bad headache. You pass out once or more than once. You have pain in your chest, belly, or back. You have a very fast or uneven heartbeat (palpitations). It hurts to breathe. You are bleeding from your mouth or your bottom (rectum). You have black or tarry poop (stool). You have jerky movements that you cannot control (seizure). You are confused. You have trouble walking. You are very weak. You have vision problems. These symptoms may be an emergency. Do not wait to see if the symptoms will go away. Get medical help right away. Call your local emergency services (911 in the [place] Do not drive yourself to the hospital. Summary Syncope is when you pass out (faint) for a short time. It is caused by a sudden decrease in blood flow to the brain. Signs that you may be about to faint include feeling dizzy, light-headed, or sick to your stomach, seeing all white or all black, or having cold, clammy skin. If you start to feel like you might pass out, lie down right away and raise (elevate) your feet above the level of your heart. Breathe deeply and steadily. Wait until all of the symptoms are gone. This information is not intended to replace advice given to you by your health care provider. Make sure you discuss any questions you have with your health care provider. Document Released: 08/02/2008 Document Revised: 03/29/2018 Document Reviewed: 03/29/2018 [employer] Patient Education onlinetours. Follow Up Care 03/27/2023 18:30:38 With:KRYSTAL JONES MD Address: [address] [place] [address] [address] [place] [address] [phone] When: Unknown Comments:Follow-up in 2 weeks With:DULCE MARIA GONZALEZ MD, Internal Medicine Address: [address] [place] [address]- When:1-2 days Comments:Please call the office to schedule a follow-up appointment [facility] 03-29-2023 Note Discharge Instructions Thank you for allowing [facility] to assist you with your healthcare needs. The following is important discharge information regarding your hospital visit. Your Care Team DULCE MARIA GONZALEZ MD Your Diagnosis Coronary artery disease Coronary vasospasm Hyperlipidemia Hypertension Syncope Syncope and collapse Type 2 diabetes mellitus What to do next Scheduled Follow-Up Appointments Appointment Type When Where Contact InformationCV OV 04/05/2023 02:30 PM EST [facility] Follow Up Appointments Follow Up with KRYSTAL JONES MD When Why: Follow-up in 2 weeks Where: [address] [facility] [address] [facility] [place] [address]- [phone] Follow Up with DULCE MARIA GONZALEZ MD, Internal Medicine When Within 1-2 days Why: Please call the office to schedule a follow-up appointment Where: [address] [facility] [place] [address]- The Following Activity and Diet Have Been Ordered for You Discharge Activity - Ordered -- Resume your pre-hospitalization activity, 03/29/23 11:41:00 EST Discharge Diet - Ordered -- Type of Diet: Regular, Calories Permitted: 1800 kcal, 1800 ml free water restriction per day, 03/29/23 11:41:00 EST The Following Equipment Has Been Ordered for You No qualifying data available. The Following Treatments Have Been Ordered for You Discharge Labs Discharge Outpatient Labwork - Ordered -- BMP, HYPONATREMIA, follow-up within: 1 week, Results Notify to: DULCE MARIA GONZALEZ MD, 03/29/23 11:41:00 EST Discharge Radiology No qualifying data available. Other Therapies Discharge Event Monitor Instructions - Ordered -- 03/28/23 16:50:57 EST, You have been ordered mobile outpatient telemetry. You should receive a device in the mail with further instructions. If you have not received a device within 7 days after discharge, please call [facility] at [phone]. Post Acute Orders No qualifying data available. Someone Will Contact You Regarding These Home Health Referrals No home referrals have been ordered for you. No one will call you. Allergies Cardizem NIFEdipine aspirin Medications Please ask your primary doctor or pharmacist before taking any other medication not listed, including over the counter drugs, herbal medications, vitamins and or supplements as they may interact with your home medications. What How Much When Instructions Last Dose New fluticasone nasal (Flonase 50 mcg/ inh nasal spray) 2 spray(s) each nostril Once a day (in the morning) Duration: 7 Days Pickup at [facility] [address] New loratadine (Claritin 10 mg oral tablet) 1 tab(s) by mouth Once a day Duration: 10 Days Refills: 2 Pickup at [facility] [address] Unchanged isosorbide mononitrate (isosorbide mononitrate 30 mg oral tablet, extended release) 1 tab(s) by mouth Once a day Unchanged latanoprost ophthalmic (latanoprost 0.005% ophthalmic solution) 1 Drops Both eyes Daily at bedtime Unchanged multivitamin (Multivitamin) 1 tab(s) by mouth Once a day Unchanged rosuvastatin (rosuvastatin 10 mg oral tablet) 0.5 tab(s) by mouth Daily at bedtime Unchanged verapamil (verapamil 120 mg/ 12 hours oral tablet, extended release) 1 tab(s) by mouth Once a day Pharmacy Information [facility] [address]: [address] [place], [place] [phone] Please take this list to your next doctor s visit. Bring all medications you take, including over the counter medications, herbals and other supplements with you to your doctor s visit. Patients and families are reminded to discard old lists and to update any records with all medication providers or retail pharmacies. Education Materials Syncope Syncope is when you pass out (faint) for a short time. It is caused by a sudden decrease in blood flow to the brain. Signs that you may be about to pass out include: Feeling dizzy or light-headed. Feeling sick to your stomach (nauseous). Seeing all white or all black. Having cold, clammy skin. If you pass out, get help right away. Call your local emergency services (911 in the [place] Do not drive yourself to the hospital. Follow these instructions at home: Watch for any changes in your symptoms. Take these actions to stay safe and help with your symptoms: Lifestyle Do not drive, use machinery, or play sports until your doctor says it is okay. Do not drink alcohol. Do not use any products that contain nicotine or tobacco, such as cigarettes and e-cigarettes. If you need help quitting, ask your doctor. Drink enough fluid to keep your pee (urine) pale yellow. General instructions Take yzmj-arg-bupkqcd and prescription medicines only as told by your doctor. If you are taking blood pressure or heart medicine, sit up and stand up slowly. Spend a few minutes getting ready to sit and then stand. This can help you feel less dizzy. Have someone stay with you until you feel stable. If you start to feel like you might pass out, lie down right away and raise (elevate) your feet above the level of your heart. Breathe deeply and steadily. Wait until all of the symptoms are gone. Keep all follow-up visits as told by your doctor. This is important. Get help right away if: You have a very bad headache. You pass out once or more than once. You have pain in your chest, belly, or back. You have a very fast or uneven heartbeat (palpitations). It hurts to breathe. You are bleeding from your mouth or your bottom (rectum). You have black or tarry poop (stool). You have jerky movements that you cannot control (seizure). You are confused. You have trouble walking. You are very weak. You have vision problems. These symptoms may be an emergency. Do not wait to see if the symptoms will go away. Get medical help right away. Call your local emergency services (911 in the [place] Do not drive yourself to the hospital. Summary Syncope is when you pass out (faint) for a short time. It is caused by a sudden decrease in blood flow to the brain. Signs that you may be about to faint include feeling dizzy, light-headed, or sick to your stomach, seeing all white or all black, or having cold, clammy skin. If you start to feel like you might pass out, lie down right away and raise (elevate) your feet above the level of your heart. Breathe deeply and steadily. Wait until all of the symptoms are gone. This information is not intended to replace advice given to you by your health care provider. Make sure you discuss any questions you have with your health care provider. Document Released: 08/02/2008 Document Revised: 03/29/2018 Document Reviewed: 03/29/2018 [employer] Patient Education 2020 [employer] Additional Information VACCINATE! IT SAVES LIVES! Members of the community who have not yet received the COVID-19 vaccine and would like to receive it can visit one of [facility] vaccine clinics. There are many vaccine clinic locations within the [facility]. For locations and available times, please visit https://gettheshot.coronavirus.o hio.gov/. It is important to note that some COVID mobile vaccine clinics are held outdoors and may be canceled in rainy or stormy conditions. To learn more about pediatric vaccinations (ages 5-11), we invite you to visit the [facility] webpage. [email or web address].[facility].org/p ages/9266-Tndqz-Lqnicmyvayl-Freq staiog-Ztxck-Utdaelzoe.html To learn more about the COVID-19 vaccine, we invite you to visit the CDC website for a list of frequently asked questions.https://www.cdc.gov/co ronavirus/2019-ncov/vaccines/faq .html [facility] Patient Portal Access Instructions: Stay connected with your healthcare team and access your personal medical information anytime with the [facility] Patient Portal. Please follow the directions below to create your [facility] account: 1.Access the email account you provided upon registration to the hospital/physician office.2.Look for an invitation email from [facility].3.Open the email and access the invitation link: Accept Invitation to [facility].4.Fill in the required frausto to create your account. To access your account, visit [employer]. Click the blue button labeled Access Patient Portal and then log in with the username and password that you created in the steps above. You will be able to view your test results, lab results, a summary of your visits, upcoming appointments and more. There is also a convenient messaging option where you can send secure messages to your provider. In addition, you will have the ability to download any documents or summaries to your computer and/or send the information securely to a physician. Remember that your healthcare information is confidential, so carefully consider who you will allow to register on the [facility] Patient Portal for access to your information. You can also access the [facility] Patient Portal on the [employer] reta. Simply click on Patient Portal and then log into your account. If you would like to receive a full copy of your medical records, please contact the [facility] Medical Records Department by calling [phone], Tuesday through Tuesday between 8 a.m. and 4:30 p.m. HOW TO SAFELY DISPOSE OF PRESCRIPTION MEDICATIONS Please use one of the following methods to safely dispose of your unused medications. 1.Use a drug disposal kit: the drug disposal pouch allows you to safely discard your old and unused drugs. Ask your nurse to give you one when you are discharged.2.Visit a local take-back location: Many local pharmacies and police departments have programs that collect old and unwanted prescription drugs. Call your local pharmacy or go to http://[employer].Bardakovka/8V7Gn5w to find one close to you.3.Make use of household items: Use cat litter or old coffee grounds to dispose medications if other options are not available. Mix your drugs with these household products, seal them in an airtight container and throw it into the garbage. Call [facility]: [phone] to be sure your drugs can be disposed of in this way. Some medicines may require a different approach.4.Never flush your medications down the toilet. IF YOU HAVE BEEN PRESCRIBED AN OPIOID FOR PAIN If you have been prescribed an opioid (such as hydrocodone, oxycodone or morphine), it is critical to understand the possible side effects and risks of opioid pain medications. Even when taken as directed, opioids can have several side effects including: Tolerance, meaning you might need to take more of a medication for the same pain relief. Nausea, vomiting and/or constipation. Sleepiness, dizziness, dry mouth, confusion, depression or itching. Physical dependence, meaning you have withdrawal symptoms when a medication is stopped, can develop within a few days. KNOW YOUR RESPONSIBILITIES It is important to know exactly how much and how often to take the opioid pain medications you are prescribed. Never take opioids in higher amounts or more often than prescribed. Do not combine opioids with alcohol or other drugs that cause drowsiness, such as benzodiazepines, also known as benzos, including diazepam and alprazolam, muscle relaxants or sleep aids. Never sell or share prescription opioids. This is illegal. Store opioids in a secure place and out of reach of others (including children, family, friends and visitors). The last page of this document has been signed and retained as a CHART COPY. Signatures Patient Education Materials Syncope, Ceux-yl-Wglp Medication Leaflets My discharge plan and instructions have been reviewed and explained to me and IANGELO AMANDA L understand my current condition and have read and understand these discharge instructions. I have received a written copy of the plan/instructions. If I have questions, I am aware that I should contact my doctor. Patient/Rn Corrections Signature: Date/Time: Relationship to Patient: Witness Name/Signature: Date/Time: [facility] 03-29-2023 Cardiology Progress note Date of Service 03/29/2023 Subjective Patient examined at bedside. Patient is alert oriented x 3. Denies any complaints. Background: Patient family history of premature coronary artery disease, no family history of sudden cardiac or thick heart or long QT syndrome, history of diabetes, hypertension, CAD, coronary spasm, chronic diastolic heart failure presents with syncopal episode Patient was sitting in the roman catholic started feeling warm and passed out while sitting in the chair without falling. noticed that that her eyes were closed and she started snoring. He elevated her chin and she started opening her eyes but she seemed could not focus. Afterwards she felt nauseated. Syncope lasted 5-6 snoring sounds. At baseline patient is relatively active her activities are limited diffuse joint pain she was diagnosed with some autonomic disorder unknown etiology she is not getting any treatment for it but she has a significant joint pains and not very fast with activity. Denies any recent or prior syncope denies any recent chest pain she does have a chronic shortness of breath with activity but denies any worsening. 2002 she had a mild heart attack as a workup found to have mild coronary artery disease 2004 for chest pain had another cardiac catheterization found to have vasospasm and coronary vessels. Patient was started on calcium channel antonieta and since then denies any more chest pains 02/12/2022 LVEF 60 to 65% trivial AI trivial pericardial effusion 2004 severe three-vessel coronary vasospasm 2002 patent coronaries [03/29/2023]: Telemetry does not show any new changes. Recommend 30 days event monitor when discharged. [03/28/2023]: Patient admitted from ED because of possible syncopal episode while sitting on a chair in discharge. ECHO done suggestive of normal EF. Objective Vitals and Measurements T: 36.8 C (Oral) TMIN: 36.5 C (Oral) TMAX: 37.8 C (Oral) HR: 90(Monitored) RR: 18 BP: 146/76 BP: 134/83(Sitting) BP: 126/84(Standing) BP: 146/76(Supine) SpO2: 98% HT: 162.6 cm WT: 83.3 kg BMI: 31.51 Intake and Output 7AM Yesterday to 7AM Today Intake and Output (Last 24 hours) Intake Administration Information 600.00 Oral Intake 240.00 Output Urine Count 1.00 Total Summary Total Intake 840.00 Total Output 0.00 Fluid Balance 840.00 Physical Exam General: AAOX3, NAD HEENT: Anicteric sclera, MMM Neck: Trachea midline, no JVD appreciated CVS: RRR, normal S1/S2, no murmurs/rubs/gallops Lung: CTAB, no wheezes/rhonchi/rales Abd: Soft, NT/ND Extrem: WWP, no LE edema Skin: Warm, Intact Neuro: AAOX3, spontaneous movement of all extremities Psych: Appropriate mood & affect Weight Dosing Weight: 83.3 kg (03/28/23) Dosing Weight: 83.3 kg (03/27/23) Medications Medications (11) Active Scheduled: (5) isosorbide mononitrate 30 mg ER tablet 30 mg 1 tab(s), Oral, qDay latanoprost ophthalmic 0.005% Solution 1 drop(s), Eyes, both, qHS multivitamin tablet 1 tab(s), Oral, qDay rosuvastatin 5 mg tablet 5 mg 1 tab(s), Oral, qHS verapamil 120 mg ER tablet 120 mg 1 tab(s), Oral, qDay Continuous: (0) PRN: (6) acetaminophen 325 mg Tablet 650 mg 2 tab(s), Oral, q6hWA dextrose 50% Solution Disp syringe 50 mL 12.5 gram(s) 25 mL, IV Push, AsDirected melatonin 3 mg tablet 3 mg 1 tab(s), Oral, qHS melatonin 3 mg tablet 3 mg 1 tab(s), Oral, qHS ondansetron 2 mg/ 1 mL 2 mL INJ 4 mg 2 mL, IV Push, q4h ondansetron 4 mg DIS tablet 4 mg 1 tab(s), Oral, q6h Lab Results 03/29 05:28 Glucose Level: 119 H Sodium Level: 134 L Potassium Level: 3.9 BUN: 12.0 Creatinine Lvl (s): 0.65 03/28 11:40 WBC: 7.4 Hgb: 13.3 Hct: 38.7 Platelet: 206 Neutrophil %: 75.9 H Glucose Level: 153 H Sodium Level: 132 L Potassium Level: 4.0 BUN: 14.0 Creatinine Lvl (s): 0.67 EKG No qualifying data available. Assessment/Plan 1. Syncope Patient presented with transient loss of consciousness associated with snoring while sitting on the bench and the charge No previous similar episode Telemetry overnight shows no new events Test for orthostatic blood pressure negative Plan Recommend 30 days event monitor on discharge 2. Mild CAD 3. History of coronary vasospasm Cardiac cath [2002]: Mild to moderate stenosis in all 3 vessels. Coronary vasospasm Plan CONTINUE rosuvastatin 5 mg p.o. daily 4. Hypertension Blood pressure in acceptable range Plan CONTINUE isosorbide mononitrate 30 mg p.o. daily CONTINUE verapamil 120 mg p.o. daily 5. Hyperlipidemia Plan CONTINUE rosuvastatin 5 mg p.o. daily 6. DM 2 Manage as per primary hospitalist team. At this point, cardiology will sign off. Please reconsult, if there is a change in clinical condition of the patient. Digitally Signed by TEDDY PENN MD on 03/29/2023 11:39 AM Digitally Signed by LESLIE KHAN MD [facility] 03-28-2023 Note ORIGINAL EXAMINATION: CT OF THE HEAD WITHOUT CONTRAST03/28/2023 11:31 pm TECHNIQUE: CT of the head was performed without the administration of intravenous contrast. Automated exposure control, iterative reconstruction, and/or weight based adjustment of the mA/kV was utilized to reduce the radiation dose to as low as reasonably achievable. COMPARISON: CT head 08/08/2017 HISTORY: ORDERING SYSTEM PROVIDED HISTORY: Reason for Exam: headaches last few days, syncopal episode tuesday, denies falling was sitting in chair when happened, no previous neuro Headache, syncopal episode FINDINGS: There is no intracranial hemorrhage, mass, mass effect or abnormal extra-axial fluid collection. No CT evidence for acute infarction. The ventricles are normal. Mild scattered hypodense areas in the periventricular and subcortical white matter which is nonspecific however most consistent with chronic microvascular angiopathy. Atherosclerotic calcification of the cavernous carotid arteries. Partially empty sella. The skull base and calvarium demonstrate no abnormality. Paranasal mucosal sinus thickening with aerated secretions in the ethmoid and sphenoid sinuses. IMPRESSION: No acute intracranial abnormalities. Aerated secretions in the ethmoid and sphenoid sinuses which may be seen with acute sinusitis in the appropriate clinical setting. I have personally reviewed the images of this examination and agree with the resident's findings and interpretation. Interpreted by: Radha Salazar MD Preliminary Report By: Zakia Jane Electronically signed By Radha Salazar MD Dictated Date: 03/29/2023 1:29:46 AM Prelim Date: 03/29/2023 1:38:26 AM Sign Date: 03/29/2023 8:48:18 AM Ordering Provider: [facility] 03-28-2023 Note Date of Service 03/28/2023 Chief Complaint Patient seen and examined today for syncopal episode, mild hyponatremia Subjective Patient seen today, her was at bedside. She stated that she felt lightheaded sweaty and had a syncopal episode which lasted for about 10 to 15 seconds. No seizure-like activity as per patient's . Patient today complains of mild headache, denies any chest pain or shortness of breath. Objective Vitals and Measurements T: 36.7 C (Oral) TMIN: 36.5 C (Oral) TMAX: 36.7 C (Oral) HR: 80(Monitored) RR: 18 BP: 104/58 SpO2: 95% HT: 162.6 cm WT: 83.3 kg BMI: 31.51 Intake and Output 7AM Yesterday to 7AM Today Intake and Output (Last 24 hours) Intake Output Total Summary Total Intake 0.00 Total Output 0.00 Fluid Balance 0.00 Physical Exam General Appearance: Patient appears healthy, well-developed, not in any acute distress. Cardiac: Normal rate and rhythm, S1-S2 heard, no murmurs heard. Lungs: Clear on auscultation bilaterally, no wheezes or rales. Abdomen: Soft nontender, nondistended, no organomegaly. Extremities: No pedal edema. Neurological: Alert ,oriented, moving all extremities antigravity Skin: No rashes noted. Psychiatric: Not anxious or depressed. Weight Dosing Weight: 83.3 kg (03/28/23) Dosing Weight: 83.3 kg (03/27/23) Medications Medications (11) Active Scheduled: (5) isosorbide mononitrate 30 mg ER tablet 30 mg 1 tab(s), Oral, qDay latanoprost ophthalmic 0.005% Solution 1 drop(s), Eyes, both, qHS multivitamin tablet 1 tab(s), Oral, qDay rosuvastatin 5 mg tablet 5 mg 1 tab(s), Oral, qHS verapamil 120 mg ER tablet 120 mg 1 tab(s), Oral, qDay Continuous: (0) PRN: (6) acetaminophen 325 mg Tablet 650 mg 2 tab(s), Oral, q6hWA dextrose 50% Solution Disp syringe 50 mL 12.5 gram(s) 25 mL, IV Push, AsDirected melatonin 3 mg tablet 3 mg 1 tab(s), Oral, qHS melatonin 3 mg tablet 3 mg 1 tab(s), Oral, qHS ondansetron 2 mg/ 1 mL 2 mL INJ 4 mg 2 mL, IV Push, q4h ondansetron 4 mg DIS tablet 4 mg 1 tab(s), Oral, q6h Lab Results 03/28 11:40 WBC: 7.4 Hgb: 13.3 Hct: 38.7 Platelet: 206 Neutrophil %: 75.9 H Glucose Level: 153 H Sodium Level: 132 L Potassium Level: 4.0 BUN: 14.0 Creatinine Lvl (s): 0.67 03/27 19:42 WBC: 7.2 Hgb: 13.7 Hct: 38.6 Platelet: 218 Neutrophil %: 82.5 H Glucose Level: 146 H Sodium Level: 134 L Potassium Level: 4.1 BUN: 12.0 Creatinine Lvl (s): 0.60 EKG EKG (ED) - Completed -- 03/27/23 19:37:00 EST, 03/27/23 19:37:00 EST Assessment/Plan Coronary artery disease Coronary vasospasm Hyperlipidemia Hypertension Syncope Syncope and collapse Type 2 diabetes mellitus Orders: isosorbide mononitrate, Start: 03/28/23 9:50:00 EST, Dose = 30 mg, = 1 tab(s), Oral, qDay, 03/28/23 9:50:00 EST latanoprost ophthalmic, Start: 03/28/23 22:00:00 EST, Dose = 1 drop(s), Soln, Eyes, both, qHS, 03/28/23 9:50:00 EST multivitamin, Start: 03/28/23 12:00:00 EST, Dose = 1 tab(s), Tab, Oral, qDay, 03/28/23 9:50:00 EST rosuvastatin, Start: 03/28/23 22:00:00 EST, Dose = 5 mg, = 1 tab(s), Oral, qHS, 03/28/23 9:50:00 EST verapamil, Start: 03/28/23 9:50:00 EST, Dose = 120 mg, = 1 tab(s), Oral, qDay, 03/28/23 9:50:00 EST Basic Metabolic Panel Communication Order (scheduled) CT Head or Brain w/o Contrast Orthostatic Vital Signs Osmolality Serum Osmolality Urine Sodium Random Urine Time Spent 1. Syncopal episode: Most likely vasovagal syncope as patient had lightheadedness and sweating before she passed out -No seizure-like activity, no focal neurological deficits -CT head ordered as patient complained of mild headache which started after syncopal episode -Cylinder Press Feeder consulted, recommended 30-day event monitor on discharge and outpatient sleep study -Orthostatic vital signs pending -Echo limited study, showed normal systolic function, normal wall motion 2. Coronary artery disease, patient allergic to aspirin, continue statin 3. Coronary vasospasm, on verapamil and isosorbide mononitrate as outpatient 4. Hyperlipidemia on statin 5. Inflammatory polyarthropathy,: Has appointment with marking machine operator as outpatient 6. Type 2 diabetes mellitus,: Not on any medications at home, continue insulin sliding scale DVT prophylaxis on SCDs. Subcu Lovenox can be started for DVT prophylaxis if CT head negative for any acute finding Digitally Signed by ALEXANDER VALENCIA MD on 03/28/2023 04:55 PM [facility] 01-29-2024 Consult note Date of Service 03/28/2023 Reason for Consultation Syncope Referring Physician ED History of Present Illness Patient family history of premature coronary artery disease, no family history of sudden cardiac or thick heart or long QT syndrome, history of diabetes, hypertension, CAD, coronary spasm, chronic diastolic heart failure presents with syncopal episode Patient was sitting in the [employer] started feeling warm and passed out while sitting in the chair without falling. noticed that that her eyes were closed and she started snoring. He elevated her chin and she started opening her eyes but she seemed could not focus. Afterwards she felt nauseated. Syncope lasted 5-6 snoring sounds. At baseline patient is relatively active her activities are limited diffuse joint pain she was diagnosed with some autonomic disorder unknown etiology she is notgetting any treatment for it but she has a significant joint pains and not very fast with activity.Denies any recent or prior syncope denies any recent chest pain she does have a chronic shortness of breath with activity but denies any worsening. 2002 she had a mild heart attack as a workup found to have mild coronary artery disease 2004 for chest pain had another cardiac catheterization found to have vasospasm and coronary vessels. Patient was started on calcium channel antonieta and since thendenies any more chest pains 02/12/2022 LVEF 60 to 65% trivial AI trivial pericardial effusion 2004 severe three-vessel coronary vasospasm 2002 patent coronaries EKG did not show significant changes from 2018 Troponins are negative x 2 chest x-ray unremarkable, Glu 146 Review of Systems All 12 review of systems (General, HEENT, Eyes, Skin, Respiratory, Cardiovascular, Gastrointestinal, Musculoskeletal, Neurological, Psychiatric, Endocrine, Hematology) were reviewed and are negative except as documented in HPI. Physical Exam Vitals and Measurements T: 36.5 C (Oral) TMIN: 36.5 C (Oral) TMAX: 36.7 C (Oral) HR: 88 RR: 18 BP: 157/76 SpO2: 94% WT: 83.3 kg Weight Dosing Weight: 83.3 kg (03/27/23) General: alert, oriented X3, well groomed and in nightgown Eyes: PERRLA, EOM intact ENT: Oral mucosa moist, tongue not swollen Neck: Soft, no swelling, no thyroidomegally Cardiovascular: RRR, nS1S2, no murmur, no JVD, no gallop, no thrills, no S3, no S4, bilateral radial pulse 2+, no carotid bruits Lungs: no bilateral crackles, no wheezing, no rales, no diminished lung sounds, symmetrical chest movement Abdomen: Soft, non tender, non distended, positive bowel sounds, no hepatosplenomegally Extremity: No edema, no deformity, no cyanosis, no clubbing Musculoskeletal: Grossly preserved strength, no joint swelling, no change in balance Skin: No rashes, no ulcers, no erythema, is warm and dry Neurological: Grossly no focal deficit and grossly intact sensation Psychiatry: Normal mood and affect, no panic attacks Lab Results 03/27 19:42 WBC: 7.2 Hgb: 13.7 Hct: 38.6 Platelet: 218 Neutrophil %: 82.5 H Glucose Level: 146 H Sodium Level: 134 L Potassium Level: 4.1 BUN: 12.0 Creatinine Lvl (s): 0.60 Assessment/Plan 1. Syncope and collapse Most likely vasovagal still suggest continue telemonitoring and on discharge 30-day monitor. Agree with echo Suggest outpatient sleep study. Unless there is objective signs of ischemia or tachyarrhythmias no need for ischemic workup at present will reassess as outpatient 2. Coronary artery disease mild 2002 suggest aspirin , statins 3. Coronary vasospasm in 2004 4. Hypertension suggest continue current therapy 5. Hyperlipidemia goal LDL <100 6. Type 2 diabetes mellitus On blood work glucose was 146 Autoimmune disorder of unknown etiology ANURAG Patient most likely does have a sleep apnea might be all related to sleep apnea but this first episode when she fell asleep. Suggest outpatient sleep study Problem List/Past Medical History Ongoing Coronary artery disease Coronary vasospasm Hyperlipidemia Hypertension Inflammatory polyarthropathy Syncope and collapse Type 2 diabetes mellitus Historical No qualifying data Procedure/Surgical History Echocardiogram: 02/11/22 Cardiac catheterization: 02/09/05 Cardiac catheterization: 04/26/02 Cholecystectomy Tubal ligation Carpal tunnel release Medications Inpatient acetaminophen, 650 mg= 2 tab(s), Oral, q6hWA, PRN Dextrose 50% IV Push, 12.5 gram(s)= 25 mL, IV Push, AsDirected, PRN melatonin, 3 mg= 1 tab(s), Oral, qHS, PRN melatonin, 3 mg= 1 tab(s), Oral, qHS, PRN Zofran, 4 mg= 2 mL, IV Push, q4h, PRN Zofran ODT, 4 mg= 1 tab(s), Oral, q6h, PRN Home isosorbide mononitrate 30 mg oral tablet, extended release, 30 mg= 1 tab(s), Oral, qDay latanoprost 0.005% ophthalmic solution, 1 drop(s), Eyes, both, qHS Multivitamin, 1 tab(s), Oral, qDay rosuvastatin 10 mg oral tablet, 5 mg= 0.5 tab(s), Oral, qHS verapamil 120 mg/12 hours oral tablet, extended release, 120 mg= 1 tab(s), Oral, qDay Allergies Cardizem NIFEdipine aspirin Social History Smoking Status - 08/08/2017 Never smoker Alcohol - No Risk, 08/08/2017 Use: Never., 02/01/2022 Nutrition/Health Caffeine intake amount: 2-4 servings per day., 02/01/2022 Substance Abuse - No Risk, 08/08/2017 Use: Never., 02/01/2022 Tobacco Nicotine Use: Never (less than 100 in lifetime)., 02/01/2022 Family History Alzheimer's disease: Mother. Cancer: Sister. Diabetes: Mother, Sister and Brother. Heart disease: Father. Hypertension: Mother and Sister. Immunizations No qualifying data available. Digitally Signed by ANJU ANDUJAR MD on 03/28/2023 09:58 AM [id number] History and physical note Date of Service 03/27/23 Chief Complaint Patient states that she was at [employer] and got dizzy and passed out. Denies pain. History of Present Illness 72-year-old female with PMHx CAD, coronary vasospasm, HLD, HTN, DM2 presents to the ED for syncopalepisode. History obtained by patient, ED physician, chart review. The patient states that she was sitting in [employer] when she became very warm and then lost consciousness. states that she was unconscious for about 3 minutes and was snoring at the time. Denied any shaking or jerking activity,loss of bowel or bladder, preceding symptoms otherwise, or other abnormalities. She has never had asimilar episode before. In the emergency department BP is elevated 173. Tachypneic at 22. CBC with no leukocytosis, anemia, abnormal platelet count. CMP with glucose 146, sodium 134. Troponin normal x 2. CT scratch that CXR shows no acute abnormality. ECG shows prolonged QTc. No medications given. Cardiology was contacted. Recommended admission to medicine. Prior echo in January 2022 was showing LVH, no significant valvular dysfunction. Review of Systems Pertinent review of systems are included in the HPI. All other systems were reviewed and are negative for acute changes from the patient's baseline. Physical Exam Vitals and Measurements T: 36.5 C (Oral) TMIN: 36.5 C (Oral) TMAX: 36.7 C (Oral) HR: 87 RR: 22 BP: 173/87 SpO2: 94% WT: 83.3 kg Weight Dosing Weight: 83.3 kg (03/27/23) GA: Alert and oriented x3, no acute distress Abd: Not distended HEENT: NCAT, sclera anicteric, oral mucosa moist Pulmonary: No tachypnea or use of accessory respiratory muscles. MSK: No gross deformities Cardiovascular: Not tachycardic Skin: Warm and dry Neuro: Spontaneous movement of all extremities, cranial nerves II through XII grossly normal Psychiatric: Thought content, associations, attention are all normal. Lab Results 03/27 19:42 WBC: 7.2 10^3/mcL (03/27/23 19:42:00) RBC: 4.06 10^6/mcL Low (03/27/23 19:42:00) Hgb: 13.7 G/dL (03/27/23 19:42:00) Hct: 38.6 % (03/27/23 19:42:00) MCV: 94.9 fL (03/27/23 19:42:00) MCH: 33.7 pg High (03/27/23 19:42:00) MCHC: 35.5 G/dL (03/27/23 19:42:00) RDW: 12.6 % (03/27/23 19:42:00) Platelet: 218 10^3/mcL (03/27/23 19:42:00) MPV: 7.3 fL (03/27/23 19:42:00) Monocyte Distribution Width: 23.35 High (03/27/23 19:42:00) Neutrophil %: 82.5 % High (03/27/23 19:42:00) Lymphocyte %: 9.9 % Low (03/27/23 19:42:00) Monocyte %: 6.5 % (03/27/23 19:42:00) Eosinophil %: 0.7 % (03/27/23:42:00) Basophil %: 0.4 % (03/27/23:42:00) Neutrophil, Absolute: 5.9 10^3/mcL (03/27/23:42:00) Lymphocyte, Absolute: 0.7 10^3/mcL Low (03/27/23:42:00) Monocyte, Absolute: 0.5 10^3/mcL (03/27/23:42:00) Eosinophil, Absolute: 0.1 10^3/mcL (03/27/23:42:00) Basophil, Absolute: 0 10^3/mcL (03/27/23:42:00) Glucose Level: 146 mg/dL High (03/27/23:42:00) Sodium Level: 134 mEq/L Low (03/27/23:42:00) Potassium Level: 4.1 mEq/L (03/27/23:42:00) Chloride: 103 mEq/L (03/27/23:42:00) CO2: 23 mEq/L (03/27/23:42:00) Electrolyte Balance: 8 mEq/L (03/27/23:42:00) BUN: 12 mg/dL (03/27/23:42:00) Creatinine Lvl (s): 0.6 mg/dL (03/27/23:42:00) BUN/Creatinine Ratio: 20 ratio (03/27/23:42:00) Calcium Lvl: 9.7 mg/dL (03/27/23:42:00) Total Protein: 7.6 G/dL (03/27/23:42:00) Albumin Level: 4.1 G/dL (03/27/23:42:00) Globulin: 3.5 G/dL (03/27/23:42:00) A/G Ratio: 1.2 ratio (03/27/23:42:00) Bili Total: 0.6 mg/dL (03/27/23:42:00) Alk Phos: 69 U/L (03/27/23:42:00) AST/SGOT: 30 U/L (03/27/23:42:00) ALT/SGPT: 29 U/L (03/27/23 19:42:00) GFR Non-: >60 (03/27/23 19:42:00) GFR : >60 (03/27/23 19:42:00) Troponin I High Sensitivity: 11.48 ng/L (03/27/23 21:11:00) Imaging Results and Diagnostics XR Chest 1 View Result Date: March 27, 2023 Verified By: CHESTER DUARTE MD CLINICAL STATEMENT: IMPRESSION: No acute abnormality is identified. EKG EC03/28/23: SINUS RHYTHM LOW VOLTAGE, PRECORDIAL LEADS PROLONGED QT INTERVAL Electronic Signature: CHESTER HARDING MD 03/27/2023 22:24:01 Assessment/Plan Transient loss of consciousness. Patient with 3-minute unresponsive episode associated with snoring, preceded by flushing. She has a history of CAD, coronary vasospasm, HLD, HTN and DM2 raising concern for cardiac etiology. Concern for cardiac etiology of syncope. -Echo -Orthostatic vitals -Monitor Considering her prolonged QTc, will have cardiology provide input. Check magnesium level DM 2. Per medication fill history does not appear the patient is on any medicines that would cause hypoglycemia. Her glucose elevated here. Low concern for neuroglycopenia as contributing to her lossof consciousness. History of CAD, coronary vasospasm. As above, cardiology consulted. HTN. BP is elevated in the 170s systolic care. Continue home antihypertensives. Medications were not verified by pharmacy at the time of this dictation. Reconciliation to be completed once medications are verified; will address additional chronic medical problems at that time. DVT prophylaxis: SCDs Note dictated using voice recognition software and may contain typographical errors. Problem List/Past Medical History Ongoing Coronary artery disease Coronary vasospasm Hyperlipidemia Hypertension Inflammatory polyarthropathy Type 2 diabetes mellitus Historical No qualifying data Procedure/Surgical History Echocardiogram: 02/11/22 Cardiac catheterization: 02/09/05 Cardiac catheterization: 04/26/02 Cholecystectomy Tubal ligation Carpal tunnel release Medications Home Medications (6) Active isosorbide mononitrate 30 mg oral tablet, extended release 30 mg = 1 tab(s), Oral, qAM latanoprost 0.005% ophthalmic solution nutritional supplement predniSONE 10 mg oral tablet 10 mg = 1 tab(s), Oral, qDay rosuvastatin 10 mg oral tablet 5 mg = 0.5 tab(s), Oral, qDay verapamil 120 mg/24 hours oral capsule, extended release 120 mg = 1 cap(s), Oral, qDay Allergies Cardizem NIFEdipine aspirin Social History Smoking Status - 08/08/2017 Never smoker Alcohol - No Risk, 08/08/2017 Use: Never., 02/01/2022 Nutrition/Health Caffeine intake amount: 2-4 servings per day., 02/01/2022 Substance Abuse - No Risk, 08/08/2017 Use: Never., 02/01/2022 Tobacco Nicotine Use: Never (less than 100 in lifetime)., 02/01/2022 Family History Alzheimer's disease: Mother. Cancer: Sister. Diabetes: Mother, Sister and Brother. Heart disease: Father. Hypertension: Mother and Sister. Immunizations No qualifying data available. Code Status No qualifying data available. Digitally Signed by VIKKI MEJIA MD on 03/27/2023 11:38 PM [id number] History and physical note Date of Service 03/27/23 Chief Complaint Patient states that she was at [employer] and got dizzy and passed out. Denies pain. History of Present Illness 72-year-old female with PMHx CAD, coronary vasospasm, HLD, HTN, DM2 presents to the ED for syncopalepisode. History obtained by patient, ED physician, chart review. The patient states that she was sitting in [employer] when she became very warm and then lost consciousness. states that she was unconscious for about 3 minutes and was snoring at the time. Denied any shaking or jerking activity,loss of bowel or bladder, preceding symptoms otherwise, or other abnormalities. She has never had asimilar episode before. In the emergency department BP is elevated 173. Tachypneic at 22. CBC with no leukocytosis, anemia, abnormal platelet count. CMP with glucose 146, sodium 134. Troponin normal x 2. CT scratch that CXR shows no acute abnormality. ECG shows prolonged QTc. No medications given. Cardiology was contacted. Recommended admission to medicine. Prior echo in January 2022 was showing LVH, no significant valvular dysfunction. Review of Systems Pertinent review of systems are included in the HPI. All other systems were reviewed and are negative for acute changes from the patient's baseline. Physical Exam Vitals and Measurements T: 36.5 C (Oral) TMIN: 36.5 C (Oral) TMAX: 36.7 C (Oral) HR: 87 RR: 22 BP: 173/87 SpO2: 94% WT: 83.3 kg Weight Dosing Weight: 83.3 kg (03/27/23) GA: Alert and oriented x3, no acute distress Abd: Not distended HEENT: NCAT, sclera anicteric, oral mucosa moist Pulmonary: No tachypnea or use of accessory respiratory muscles. MSK: No gross deformities Cardiovascular: Not tachycardic Skin: Warm and dry Neuro: Spontaneous movement of all extremities, cranial nerves II through XII grossly normal Psychiatric: Thought content, associations, attention are all normal. Lab Results 03/27 18:42 WBC: 7.2 10^3/mcL (03/27/23 19:42:00) RBC: 4.06 10^6/mcL Low (03/27/23 19:42:00) Hgb: 13.7 G/dL (03/27/23 19:42:00) Hct: 38.6 % (03/27/23:42:00) MCV: 94.9 fL (03/27/23 19:42:00) MCH: 33.7 pg High (03/27/23 19:42:00) MCHC: 35.5 G/dL (03/27/23 19:42:00) RDW: 12.6 % (03/27/23 19:42:00) Platelet: 218 10^3/mcL (03/27/23 19:42:00) MPV: 7.3 fL (03/27/23:42:00) Monocyte Distribution Width: 23.35 High (03/27/23 19:42:00) Neutrophil %: 82.5 % High (03/27/23 19:42:00) Lymphocyte %: 9.9 % Low (03/27/23 19:42:00) Monocyte %: 6.5 % (03/27/23 19:42:00) Eosinophil %: 0.7 % (03/27/23 19:42:00) Basophil %: 0.4 % (03/27/23 19:42:00) Neutrophil, Absolute: 5.9 10^3/mcL (03/27/23 19:42:00) Lymphocyte, Absolute: 0.7 10^3/mcL Low (03/27/23 19:42:00) Monocyte, Absolute: 0.5 10^3/mcL (03/27/23:42:00) Eosinophil, Absolute: 0.1 10^3/mcL (03/27/23:42:00) Basophil, Absolute: 0 10^3/mcL (03/27/23:42:00) Glucose Level: 146 mg/dL High (03/27/23:42:00) Sodium Level: 134 mEq/L Low (03/27/23:42:00) Potassium Level: 4.1 mEq/L (03/27/23:42:00) Chloride: 103 mEq/L (03/27/23:42:00) CO2: 23 mEq/L (03/27/23:42:00) Electrolyte Balance: 8 mEq/L (03/27/23:42:00) BUN: 12 mg/dL (03/27/23:42:00) Creatinine Lvl (s): 0.6 mg/dL (03/27/23:42:00) BUN/Creatinine Ratio: 20 ratio (03/27/23:42:00) Calcium Lvl: 9.7 mg/dL (03/27/23:42:00) Total Protein: 7.6 G/dL (03/27/23:42:00) Albumin Level: 4.1 G/dL (03/27/23:42:00) Globulin: 3.5 G/dL (03/27/23:42:00) A/G Ratio: 1.2 ratio (03/27/23:42:00) Bili Total: 0.6 mg/dL (03/27/23:42:00) Alk Phos: 69 U/L (03/27/23:42:00) AST/SGOT: 30 U/L (03/27/23:42:00) ALT/SGPT: 29 U/L (03/27/23:42:00) GFR Non-: >60 (03/27/23:42:00) GFR : >60 (03/27/23:42:00) Troponin I High Sensitivity: 11.48 ng/L (03/27/23 21:11:00) Imaging Results and Diagnostics XR Chest 1 View Result Date: March 27, 2023 Verified By: CHESTER DUARTE MD CLINICAL STATEMENT: IMPRESSION: No acute abnormality is identified. EKG EC03/28/23: SINUS RHYTHM LOW VOLTAGE, PRECORDIAL LEADS PROLONGED QT INTERVAL Electronic Signature: CHESTER HARDING MD 03/27/2023 22:24:01 Assessment/Plan Transient loss of consciousness. Patient with 3-minute unresponsive episode associated with snoring, preceded by flushing. She has a history of CAD, coronary vasospasm, HLD, HTN and DM2 raising concern for cardiac etiology. Concern for cardiac etiology of syncope. -Echo -Orthostatic vitals -Monitor Considering her prolonged QTc, will have cardiology provide input. Check magnesium level DM 2. Per medication fill history does not appear the patient is on any medicines that would cause hypoglycemia. Her glucose elevated here. Low concern for neuroglycopenia as contributing to her lossof consciousness. History of CAD, coronary vasospasm. As above, cardiology consulted. HTN. BP is elevated in the 170s systolic care. Continue home antihypertensives. Medications were not verified by pharmacy at the time of this dictation. Reconciliation to be completed once medications are verified; will address additional chronic medical problems at that time. DVT prophylaxis: SCDs Note dictated using voice recognition software and may contain typographical errors. Problem List/Past Medical History Ongoing Coronary artery disease Coronary vasospasm Hyperlipidemia Hypertension Inflammatory polyarthropathy Type 2 diabetes mellitus Historical No qualifying data Procedure/Surgical History Echocardiogram: 02/11/22 Cardiac catheterization: 02/09/05 Cardiac catheterization: 04/26/02 Cholecystectomy Tubal ligation Carpal tunnel release Medications Home Medications (6) Active isosorbide mononitrate 30 mg oral tablet, extended release 30 mg = 1 tab(s), Oral, qAM latanoprost 0.005% ophthalmic solution nutritional supplement predniSONE 10 mg oral tablet 10 mg = 1 tab(s), Oral, qDay rosuvastatin 10 mg oral tablet 5 mg = 0.5 tab(s), Oral, qDay verapamil 120 mg/24 hours oral capsule, extended release 120 mg = 1 cap(s), Oral, qDay Allergies Cardizem NIFEdipine aspirin Social History Smoking Status - 08/08/2017 Never smoker Alcohol - No Risk, 08/08/2017 Use: Never., 02/01/2022 Nutrition/Health Caffeine intake amount: 2-4 servings per day., 02/01/2022 Substance Abuse - No Risk, 08/08/2017 Use: Never., 02/01/2022 Tobacco Nicotine Use: Never (less than 100 in lifetime)., 02/01/2022 Family History Alzheimer's disease: Mother. Cancer: Sister. Diabetes: Mother, Sister and Brother. Heart disease: Father. Hypertension: Mother and Sister. Immunizations No qualifying data available. Code Status No qualifying data available. Digitally Signed by VIKKI MEJIA MD on 03/27/2023 11:38 PM [id number] Note ORIGINAL EXAMINATION: ONE XRAY VIEW OF THE CHEST 03/27/2023 7:53 pm COMPARISON: None. HISTORY: ORDERING SYSTEM PROVIDED HISTORY: Reason for Exam: chest pain FINDINGS: The cardiomediastinal silhouette appears normal. There is no focal consolidation. There is no pulmonary edema. There is no evidence of pleural effusion. There is no evidence of pneumothorax. No fracture is identified. IMPRESSION: No acute abnormality is identified. Interpreted by: Chester Duarte Preliminary Report By: Chester Duarte Electronically signed By Chester Duarte Dictated Date: 03/27/2023 7:57:22 PM Prelim Date: 03/27/2023 7:57:38 PM Sign Date: 03/27/2023 7:57:38 PM Ordering Provider: [facility]01-28-2024 NoteSINUS RHYTHM LOW VOLTAGE, PRECORDIAL LEADS PROLONGED QT INTERVAL Electronic Signature: CHESTER HARDING MD 03/27/2023 22:24:01[facility] 01-28-2024 Evaluation + Plan noteExtracted from: Title:History and Physical Author:BREANN MEJIA MD Date:03/27/23 Transient loss of consciousn ess. Patient with 3-minute unresponsive episode associated with snoring, preceded by flushing. She has a history of CAD, coronary vasospasm, HLD, HTN and DM2 raising concern for cardiac etiology. Concern for cardiac etiology of syncope. -Echo -Orthostatic vitals -Monitor Considering her prolonged QTc, will have cardiology provide input. Check magnesium level DM 2. Per medication fill history does not appear the patient is on any medicines that would cause hypoglycemia. Her glucose elevated here. Low concern for neuroglycopenia as contributing to her loss of consciousness. History of CAD, coronary vasospasm. As above, cardiology consulted. HTN. BP is elevated in the 170s systolic care. Continue home antihypertensives. Medications were not verified by pharmacy at the time of this dictation. Reconciliation to be completed once medications are verified; will address additional chronic medical problems at that time. DVT prophylaxis: SCDs Note dictated using voice recognition software and may contain typographical errors. Addendum by VIKKI MEJIA MD on March 28, 2023 04:16:02 EST Medications not yet verified. They will need reconciled. Future Appointments Appointment Date:04/05/2023 02:30:00 PM Scheduled Provider: Location:[facility] Appointment Type:CV [facility] Evaluation note* Diagnosis Myalgia- Primary Unspecified myalgia and myositis Vitamin D deficiency documented in this encounter [facility] Work Phone: History of Present illness [id number] y/o female with Complaint of myalgia present [...] her dose. She is still on 10 mgof prednisone and she feels has been 60% improved on this current dose.-[facility] Work Phone: History of Present illness Narrative* 71 y/o female with Complaint of myalgia [...] her dose. She is still on 10 mgof prednisone and she feels has been 60% improved on this current dose. 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 She is still on 10 mgof prednisone and she feels has been 60% improved on this current dose. 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 * Today she is on 7.5 mg of prednisone and feels that she is doing a pretty good. No acute complaintshere to review lab work with her daughter [facility] Work Phone: History of Present illness Narrative* 71 y/o female with Complaint of myalgia [...] her dose. She is still on 10 mgof prednisone and she feels has been 60% improved on this current dose. 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 * Today she is on 7.5 mg of prednisone and feels that she is doing a pretty good. No acute complaintshere to review lab work with her daughter [facility] Work Phone: History of Present illness Narrative* 71 y/o female with Complaint of myalgia [...] her dose. She is still on 10 mgof prednisone and she feels has been 60% improved on this current dose. 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 * Today she is on 2.5 mg of prednisone daily for the past week and feels that she is doing okay, saidtaking a special tea from a natural food store which seems to be helping musculoskeletal complaints. She deals with stiffness in her legs after walking a long periods of time [facility] Work Phone: History of Present illness Narrative* 71 y/o female with Complaint of myalgia [...] her dose. She is still on 10 mgof prednisone and she feels has been 60% improved on this current dose. 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 * Today she is on 2.5 mg of prednisone daily for the past week and feels that she is doing okay, saidtaking a special tea from a natural food store which seems to be helping musculoskeletal complaints. She deals with stiffness in her legs after walking a long periods of time -[facility] DO Work Phone: History of Present illness Narrative* 71 y/o female with Complaint of myalgia [...] her dose. She is still on 10 mgof prednisone and she feels has been 60% improved on this current dose. 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 * Today she has been off prednisone for more than 2 weeks , She said taking a special tea from a natural food store which seems to be helping musculoskeletal complaints. She had lumbar spine imaging and was found to have spinal stenosis, she has noticed bruising in her forearms -[facility] Work Phone: Hospital course Narrative No data available for this section [facility] Summary Purpose Family History No Family History Records FoundNo Family History Records FoundNo Family History Records FoundNo Family History Records FoundNo Family History Records Found No data available for this section No Family History Records FoundNo Family History [...] DATE CREATED AUTHOR AUTHOR'S ORGANIZ ATION 12/04/2020 [facility] DATE CREATED AUTHOR AUTHOR'S ORGANIZ ATION 04/24/2022 [facility] DATE CREATED AUTHOR AUTHOR'S ORGANIZ ATION 11/17/2022 [facility] DATE CREATED AUTHOR AUTHOR'S ORGANIZ ATION 11/18/2022 [facility] DATE CREATED AUTHOR AUTHOR'S ORGANIZ ATION 04/08/2023 [facility] DATE CREATED AUTHOR AUTHOR'S ORGANIZ ATION 04/10/2023 [facility] DATE CREATED AUTHOR AUTHOR'S ORGANIZ ATION 04/18/2023 [facility] Patient Care team informatio n (unrecognized section and content) Reason for Visit (unrecogniz ed section and content) FOR RECORDS PERTAINING TO PATIENTS WHO ARE [...] BE BASED ON THE PRIMARY CLINICAL RECORDS. [employer] provides no warranty or guarantee of the accuracy or completeness of information in this document.
== END | disposition home or self-care (01) ==
LOC: OPBD 12:59
PROVIDERS: PCP Internal Medicine; Referring Provider Internal Medicine; Visit Provider Internal Medicine
DX: M81.0 Age-related osteoporosis without current pathological fracture (principal)
CPT/HCPCS: 77080

== ENCOUNTER → 2023-07-28 | Outpatient (CLI) | payer MEDICARE, SELFPAY ==
--- NOTE | 2023-07-28 10:14 | NEURO ---
NCS and/or EMG Patient Report Ordering Doctor: Alverto Friedman DATE OF SERVICE: 07/28/23 Clinical Summary: 72 year old female patient with symptoms of numbness/tingling in both hands. Nerve Conduction Studies Summary: The median-D2 SNAP distal latency was prolonged with reduced amplitude on the right side. The left ulnar-D5 SNAP distal latency was prolonged bilaterally. The median-APB CMAP distal latency was prolonged bilaterally. The left median motor conduction velocity was reduced across the forearm segment. There was a drop in the left ulnar motor conduction velocity across the elbow segment greater than 10 m/s. Needle Examination Summary: Needle examination of select muscles in the bilateral upper extremities demonstrated a higher proportion of motor unit action potentials with reduced recruitment, increased amplitude, increased duration, and polyphasia in the right abductor pollicis brevis muscle. Impression: There is electrodiagnostic evidence of the following - 1) Severe, right median mononeuropathy at the wrist (carpal tunnel syndrome), with secondary motor fiber axonal loss 2) Moderate, left median mononeuropathy at the wrist (carpal tunnel syndrome), with motor fiber demyelination 2) Left ulnar mononeuropathy at the elbow, with demyelinating features Multi Select Codes Neurology Neurology Interp Codes: 54829-62 Musc test done w/n test comp (interp) (2) and 94246-00 Nrv cndj test 13/> studies (interp)
== END | disposition home or self-care (01) ==
PROVIDERS: PCP Internal Medicine; Referring Provider Orthopaedic Surgery; Visit Provider Orthopaedic Surgery
DX: G56.03 Carpal tunnel syndrome, bilateral upper limbs (principal); R20.2 Paresthesia of skin
CPT/HCPCS: 95886; 95913

== ENCOUNTER 2023-10-24 05:49 | Day surgery (SDC) | payer MEDICARE, SELFPAY ==
[2023-10-24] VITALS (7 sets, daily range): BP systolic 125–162; BP diastolic 68–76; PULSE 67–73; RESP 14–18; TEMP 36.1–36.5; O2SAT 94–99; BMI 28.6
[2023-10-24] MEDS: Lactated Ringers 1,000 ML 15 ML IV (06:24)
--- NOTE | 2023-10-24 06:39 | PRE.ANES_ITS ---
ASA Classification* ASA Classification ASA Classification: 3 Assessment & Plan Anesthesia* Anesthesia Assessment Anesthesia Assessment: Discussed sedation and/or anesthesia options, risks, benefits, and alternatives with patient/parents/legal guardian/POA. Questions invited. The patient/parents/legal guardian/POA seems to understand and agrees to proceed with anesthesia plan. Reviewed the physical assessment, medical history, allergy history and patient home medications list prior to surgery/procedure/anesthetic and documented any changes. Performed airway and anesthesia risk assessments. Anesthesia Type Anesthesia Type: MAC Anesthesia Focused Assessment* Temperature: 97.7 F Pulse Rate: 67 Blood Pressure: 162/76 Respiratory Rate: 18 Pulse Ox: 99 Airway Assessment Mouth opens: >3 cm Mallampati Score: II Focused Labs Anesthesia Preop lab: CBC WBC 10.6 K/mm3 (4.4-11.0) 11/17/21 10:07 RBC 4.14 M/mm3 (4.2-5.4) L 11/17/21 10:07 Hgb 13.9 g/dL (12.0-15.0) 11/17/21 10:07 Hct 40.5 % (37-47) 11/17/21 10:07 Plt Count 261 K/mm3 (150-450) 11/17/21 10:07 CHEMISTRY Potassium 4.1 mmol/L (3.5-5.1) 11/17/21 10:07 Sodium 140 mmol/L (136-145) 11/17/21 10:07 BUN 13 mg/dL (7-18) 11/17/21 10:07 Creatinine 0.78 mg/dL (0.55-1.02) 11/17/21 10:07 Glucose 101 mg/dL (74-106) 11/17/21 10:07 POC Glucose 115 mg/dL (70-110) H 01/03/19 08:01 COAG Pre-Assessment Diagnosis/Proposed Procedure Planned Operative Procedure(s): REVISION RIGHT CARPAL TUNNEL RELEASE Anesthesia History Anesthesia History - solutions engineer: Anesthesia History - solutions engineer Hx Hospitalization Yes: 02/2023 PASSED OUT IN 10/17/23 09:30 CONGREGATIONAL Any Problems With Anesthesia No 10/17/23 09:30 Cholinesterase deficiency No 10/17/23 09:30 You/Your Family Experience No 10/17/23 09:30 fever (hyperthermia) with Relationship Recent Exposure to Contagious No 10/24/23 06:19 Disease Does patient have nerve No 10/17/23 09:30 stimulator Patient instructed to have device shut off --Does patient have Pacemaker No 10/24/23 06:19 or ICD? When Was Last Pacemaker Check QUESTION #4 FULL TEXT: You/Your Family Experience fever (hyperthermia) with Anesthesia Last Oral Intake Last Oral intake: Last Oral Intake NPO since 03:00 10/24/23 06:19 Meds taken in AM with sips of Yes 10/24/23 06:19 water? Meds patient instructed to levothyroxine 10/24/23 06:19 take am of surgery PONV PONV - solutions engineer: PONV - solutions engineer Female Yes 10/17/23 09:30 HX of Motion Sickness Yes 10/17/23 09:30 HX of N/V After Surgery No 10/17/23 09:30 Non-Smoker Yes 10/17/23 09:30 Duration of Surgery greater No 10/17/23 09:30 than 60 minutes Number of Risk Factors 3 10/17/23 09:30 PONV Score Moderate Risk 10/17/23 09:30 Height & Weight Height & Weight: Anesthesia: Height & Weight Height 5 ft 5 in 10/24/23 06:19 Weight: 78 kg 10/24/23 06:19 Body Mass Index (BMI) 28.6 10/24/23 06:19 Respiratory Assessment Respiratory Assessment - solutions engineer: Respiratory Tract Infection Hx - solutions engineer Hx Respiratory Tract Infection No 10/17/23 09:30 STOP Sleep Apnea STOP Sleep Apnea - solutions engineer: STOP Sleep Apnea - solutions engineer Hx Hypertension Yes: CONTROLLED WITH MED 10/17/23 09:30 Hx Sleep Apnea Yes 10/17/23 09:30 CPAP Yes 10/17/23 09:30 BIPAP No 10/17/23 09:30 Do you snore loudly (louder than talking or can be heard Do you often feel tired/ fatigued/ sleepy during daytime? Has anyone observed you stop breathing during sleep? STOP Results Positive 10/17/23 09:30 QUESTION #5 FULL TEXT : Do you snore loudly (louder than talking or can be heard through closed doors)? Tobacco Use History Tobacco Use History - solutions engineer: Tobacco Use History - solutions engineer Tobacco Use Smoking Status Never smoker 10/17/23 09:30 Hx Tobacco Use No 10/17/23 09:30 Years Smoking Packs Smoked per Day Smoking Cessation Date was within the last 15 years Hx Smoking Cessation Date Hx Smoking Cessation Counseling Hematologic Medial History Hematologic Hx - solutions engineer: Hematologic Medical Hx - r d internship Hx of Blood Transfusion No 10/17/23 09:30 Hx of Transfusion in last 3 No 10/17/23 09:30 Months Date of Last Transfusion (if within last 3 months) Ever experience any problems No 10/17/23 09:30 with transfusion(s)? Specify any problems Hx of Preganancy in last 3 No 10/17/23 09:30 Months Nurse Filling Out Transfusion DSCHRIBER 10/17/23 09:30 & Questions: Date: 10/17/23 10/17/23 09:30 Time: 09:31 10/17/23 09:30 Patient unable to answer at this time (ie. confused, unrespo /Reproduction History /Reproductive History - solutions engineer: /Reproductive Hx- solutions engineer Hx Now No 10/17/23 09:30 Gestational Age (in weeks): EDC: Hx Hx Para Hx Section SAB No 10/17/23 09:30 Active Medications Active Medications: Current Medications Generic Name Dose Route Start Last Admin Trade Name Freq PRN Reason Stop Dose Admin Cefazolin Sodium 2 gm/ Sodium 110 mls @ 150 mls/hr 10/24/23 07:30 Chloride IV 10/24/23 08:13 PREOP ONE Lactated Ringer's 1,000 mls @ 15 mls/hr 10/24/23 06:15 10/24/23 06:24 IV 15 mls/hr .Q48H JOIE Administration PFSH Medical History Wears glasses Wears dentures Dietary restriction Thyroid disease Diabetes Arthritis High cholesterol Back pain Blackout CPAP (continuous positive airway pressure) dependence Non-smoker History of pain when walking History of echocardiogram History of stress test Cardiology follow-up encounter HTN (hypertension) NSTEMI (non-ST elevated myocardial infarction) Home Medications ?Medication ?Instructions ?Recorded ?Last Taken ?Type isosorbide dinitrate 30 mg tablet 30 mg PO DAILY 12/13/18 01/03/19 06:30 History 30 MG rosuvastatin 10 mg tablet (Crestor) 5 mg PO MOWEFR 12/13/18 Unknown History verapamil 120 mg 24 hr 120 mg PO DAILY 12/13/18 01/03/19 06:30 History capsule,extended release 120 MG calcium carbonate 600 mg PO DAILY 01/01/19 Unknown History cranberry extract 500 mg capsule 1,000 mg PO DAILY 01/01/19 Unknown History multivitamin with minerals 1 ea PO DAILY 01/01/19 Unknown History omega-3 fatty acids 1,000 mg 2,000 mg PO DAILY 01/01/19 Unknown History capsule hydroxychloroquine 200 mg tablet 200 mg PO BID 10/17/23 Unknown History latanoprost 0.005 % eye drops 1 drp ophthalmic (eye) QHS 10/17/23 Unknown History levothyroxine 25 mcg tablet 25 mcg PO DAILY 10/17/23 10/24/23 History Allergy/AdvReac Type Severity Reaction Status Date / Time aspirin Allergy Mild Rash Verified 10/24/23 06:18 diltiazem (From Cardizem) Allergy Mild Rash Verified 10/24/23 06:18 nifedipine Allergy Mild Rash Verified 10/24/23 06:18 Family History Mother Diabetes Sister Diabetes CAD (coronary artery disease) Father Heart disease Surgical History History of carpal tunnel surgery of right wrist History of carpal tunnel surgery of left wrist Hx of colonoscopy S/P tubal ligation S/P laparoscopic cholecystectomy Social History Smoking Status: Never smoker alcohol intake: never Review of Systems (Anesthesia) ROS Narrative System reviewed and no additional complaints, except as documented.
[2023-10-24 06:49] LABS: Bedside Glucose 101 mg/dL (74-106)
[2023-10-24] MEDS: Cefazolin 2 GM in 0.9% Normal Saline (100mL Bag) 100 ML IV (07:30)
[2023-10-24] MEDS: Lidocaine 1% /Epi 1:100 (20ml) 20 ML Vial (07:43)
--- NOTE | 2023-10-24 08:55 | PCM.POST.ANE ---
Anesthesia: Postop Eval I Current Vital Signs Temperature: 97 F Pulse Rate: 69 Blood Pressure: 137/72 Respiratory Rate: 14 Pulse Ox: 94 Oxygen Delivery Method: Room Air Assessment Airway patent: Yes Spontaneous unlabored respirations: Yes Mental status: Awake and Calm nausea: No Vomiting: No Anesthesia Complication: No Fluid Hydration Crystalloid volume administer (ml): 300 Total IV fluid infused: 300 Progress Note Anesthesia document: Postop Eval 1 completed: Yes
--- NOTE | 2023-10-24 09:03 | POSTOPAN2_ITS ---
Anesthesia Postop Eval I Sum Postop Eval Completion status Anesthesia document: Postop Eval 1 completed: Yes Anesthesia Postop Eval I Summary Anesthesia Postop Eval I Summary: Anesthesia Postop Eval I: Assessment Summary Airway patent Yes 10/24/23 08:56 GENETICS [email or web address].[email or web address] Spontaneous unlabored Yes 10/24/23 08:56 GENETICS TEACHER.RACHELLOU respirations Mental status Awake,Calm 10/24/23 08:56 GENETICS TEACHER.RACHELLOU nausea No 10/24/23 08:56 GENETICS TEACHER.RACHELLOU Vomiting No 10/24/23 08:56 GENETICS TEACHER.RACHELLOU Anesthesia Postop Eval I: Fluid Summary Crystalloid volume administer 300 10/24/23 08:56 GENETICS [email or web address].JBLOU (ml) Colloids volume administered ( ml) Blood Product volume administered (ml) Total IV fluid infused 300 10/24/23 08:56 GENETICS TEACHER.RACHELLOU Anesthesia Postop Eval I: Summary Notes Anesthesia Complication No 10/24/23 08:56 GENETICS TEACHER.SHANNON Anesthesia Complication Comment: Post-operative progress note Anesthesia: Postop Eval II Evaluation Mental status: Awake and Calm Pain Level: 1 nausea: No Vomiting: No Complications Anesthesia Complication: No
--- NOTE | 2023-10-24 09:03 | PCM.POSTANE2 ---
Anesthesia Postop Eval I Sum Postop Eval Completion status Anesthesia document: Postop Eval 1 completed: Yes Anesthesia Postop Eval I Summary Anesthesia Postop Eval I Summary: Anesthesia Postop Eval I: Assessment Summary Airway patent Yes 10/24/23 08:56 POLE [email or web address].[email or web address] Spontaneous unlabored Yes 10/24/23 08:56 POLE [email or web address].RACHELLOU respirations Mental status Awake,Calm 10/24/23 08:56 POLE MAKER.RACHELLOU nausea No 10/24/23 08:56 POLE MAKER.RACHELLOU Vomiting No 10/24/23 08:56 POLE MAKER.RACHELLOU Anesthesia Postop Eval I: Fluid Summary Crystalloid volume administer 300 10/24/23 08:56 POLE [email or web address].JBLOU (ml) Colloids volume administered ( ml) Blood Product volume administered (ml) Total IV fluid infused 300 10/24/23 08:56 POLE MAKER.RACHELLOU Anesthesia Postop Eval I: Summary Notes Anesthesia Complication No 10/24/23 08:56 POLE MAKER.SHANNON Anesthesia Complication Comment: Post-operative progress note Anesthesia: Postop Eval II Evaluation Mental status: Awake and Calm Pain Level: 1 nausea: No Vomiting: No Complications Anesthesia Complication: No
--- NOTE | 2023-10-24 10:12 | OP.PCM_ITS ---
Report of Operation Description of Surgical Findings:: Preoperative diagnosis: Recurrent right carpal tunnel syndrome Postoperative diagnosis: Recurrent right carpal tunnel syndrome Procedure: Right revision open carpal tunnel release Surgeon: Thomas Vickers DO Anesthesia: MAC with local Community Service Representative: Alfonso Maynard CRNA Complications: None apparent IV fluids: None Estimated blood loss: 3 cc Specimen: None Packing/drains: None Implants: None Urine output: None recorded Preoperative indications: This is a 72-year-old female seen in the outpatient setting for right hand pain and paresthesias. Nerve conduction study was obtained demonstrated recurrent right carpal tunnel syndrome in the setting of remote carpal tunnel release. Due to the severity and failure of nonsurgical treatment, I recommended a revision right open carpal tunnel release. The risks, benefits, alternatives of procedure were reviewed with patient at length and she agreed to proceed. Risks included but were not limited to bleeding, infection, loss of life or limb, nonhealing wounds, worsening of carpal tunnel syndrome, persistent paresthesias, persistent pain, stiffness, neurovascular injury, DVT or PE. She expressed understanding of these risks and wished to proceed with surgery. Description of procedure: Patient was identified the preoperative holding area by name, medical record number, and date of . The operative extremity was marked. All questions were answered to patient satisfaction. Informed consent was confirmed with the patient. At time of the procedure, patient brought the operative suite and positioned supine on a standard operating table and hand table was attached to the patient's operative side. Prior to prepping, a well-padded pneumatic tourniquet was applied to the operative forearm. MAC anesthesia was then achieved and maintained. I performed a tumescent field block with 10 cc total 1% lidocaine with epinephrine 1: 100,000 at the planned incision. We then prepped and draped the operative upper extremity normal, sterile orthopedic fashion. We performed a timeout with all parties in attendance in agreement the side, site, operation be performed. No concerns voiced and we elected proceed with surgery. 2 g Ancef was ministered IV prior to tourniquet inflation. I first confirmed anesthesia with Adson forceps on the skin. After staying with the operative upper extremity with an Esmarch bandage. Tourniquet was inflated to 250 mmHg remained up for 7 minutes. A standard longitudinal was made in line with the fourth ray proximal to Malloy's cardinal line and distal to the wrist crease. Full-thickness skin flaps were developed sharply down to level palmar fascia. I extended the incision proximally crossing the wrist crease via Santo extension approximately 2 cm. I dissected down to the level of the palmar fascia. The palmaris longus tendon was mobilized ulnarly. Heiss retractor was placed. Palmar fascia was split in line with the incision. Heiss retractor was taken deeper. Transverse carpal ligament was identified and split in line with the incision along its ulnar border. Identified the median nerve deep to the antebrachial fascia and released it from any adhesions. Tenosynovectomy was performed of the flexor tendon tenosynovium within the carpal tunnel which is thick and dense. I dissected freely the recurrent branch of the median nerve and appeared to be appropriately freed. No aberrancies the median nerve were identified. Identification of perivascular fat was noted distally. The wound was copiously irrigated with normal saline solution. Tourniquet was deflated. Hemostasis was achieved with bipolar cautery. Skin was reapproximated with interrupted vertical mattress 4-0 nylon suture. A bulky dressing was applied as well as a well-padded volar fiberglass short arm splint. She tolerated procedure well without apparent complication. Patient was transferred back to same-day surgery in stable condition. Postoperative plan: Patient be discharged home today after meeting same-day surgery criteria. Patient will be weightbearing less than 3 pounds to the operative hand. She will follow-up in approximately 14 days days for suture removal and wound check. Splint is to be removed at home on postoperative day #7. Active range of motion encouraged. Short prescription of [place] provided, encouraged to take [id number] analgesics primarily for pain. Ice and elevation encouraged.
== END 2023-10-24 09:39 | disposition home or self-care (01) ==
LOC: SDC 05:50 → AC 05:51
PROVIDERS: PCP Internal Medicine; Referring Provider Student in an Organized Health Care Education/Training Program; Visit Provider Student in an Organized Health Care Education/Training Program
PROC: (CPT 64721; principal; 2023-10-24 07:15)
DX: G56.03 Carpal tunnel syndrome, bilateral upper limbs (principal); E11.9 Type 2 diabetes mellitus without complications; E78.00 Pure hypercholesterolemia, unspecified; I10 Essential (primary) hypertension; G56.22 Lesion of ulnar nerve, left upper limb; E66.3 Overweight; Z68.27 Body mass index [BMI] 27.0-27.9, adult; Z79.899 Other long term (current) drug therapy; E07.9 Disorder of thyroid, unspecified; Z79.890 Hormone replacement therapy
CPT/HCPCS: 64721; 82962; J7120; J2405

== ENCOUNTER 2024-01-16 14:10 | Day surgery (SDC) | payer MEDICARE, SELFPAY ==
[2024-01-16] VITALS (9 sets, daily range): BP systolic 120–139; BP diastolic 62–79; PULSE 68–73; RESP 14–18; TEMP 35.8–36.5; O2SAT 94–98; BMI 29.0
[2024-01-16] MEDS: Lactated Ringers 1,000 ML 15 ML IV (14:53)
--- NOTE | 2024-01-16 15:10 | PRE.ANES_ITS ---
ASA Classification* ASA Classification ASA Classification: 2 Assessment & Plan Anesthesia* Anesthesia Assessment Anesthesia Assessment: Discussed sedation and/or anesthesia options, risks, benefits, and alternatives with patient/parents/legal guardian/POA. Questions invited. The patient/parents/legal guardian/POA seems to understand and agrees to proceed with anesthesia plan. Reviewed the physical assessment, medical history, allergy history and patient home medications list prior to surgery/procedure/anesthetic and documented any changes. Performed airway and anesthesia risk assessments. Anesthesia Type Anesthesia Type: General History Source History Obtained from:: Patient and Chart Anesthesia Focused Assessment* Temperature: 96.5 F Pulse Rate: 73 Blood Pressure: 138/79 Respiratory Rate: 18 Pulse Ox: 98 Oxygen Delivery Method: Room Air Airway Assessment Mouth opens: >3 cm Mallampati Score: I Teeth Condition: Dentures (Upper dentures) and Missing (Patient has some missing molars on the bottom. The rest are tight.) Neck Range of motion (ROM): Limited ROM (Slight decrease in extension) Focused Labs Anesthesia Preop lab: CBC WBC 10.6 K/mm3 (4.4-11.0) 11/17/21 10:07 RBC 4.14 M/mm3 (4.2-5.4) L 11/17/21 10:07 Hgb 13.9 g/dL (12.0-15.0) 11/17/21 10:07 Hct 40.5 % (37-47) 11/17/21 10:07 Plt Count 261 K/mm3 (150-450) 11/17/21 10:07 CHEMISTRY Potassium 4.1 mmol/L (3.5-5.1) 11/17/21 10:07 Sodium 140 mmol/L (136-145) 11/17/21 10:07 BUN 13 mg/dL (7-18) 11/17/21 10:07 Creatinine 0.78 mg/dL (0.55-1.02) 11/17/21 10:07 Glucose 101 mg/dL (74-106) 11/17/21 10:07 POC Glucose 101 mg/dL (74-106) 10/24/23 06:17 COAG Pre-Assessment Diagnosis/Proposed Procedure Planned Operative Procedure(s): LEFT REVISION CARPAL TUNNEL RELEASE, LEFT CUBITAL TUNNEL RELEASE Anesthesia History 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 When Was Last Pacemaker Check QUESTION #4 FULL TEXT: You/Your Family Experience fever (hyperthermia) with Anesthesia Last Oral Intake Last Oral intake: Last Oral Intake NPO since 09:00 01/16/24 14:42 Meds taken in AM with sips of water? 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 Female Yes 01/09/24 10:07 HX of Motion Sickness No 01/09/24 10:07 HX of N/V After Surgery No 01/09/24 10:07 Non-Smoker Yes 01/09/24 10:07 Duration of Surgery greater No 01/09/24 10:07 than 60 minutes Number of Risk Factors 2 01/09/24 10:07 PONV Score Moderate Risk 01/09/24 10:07 Height & Weight Height & Weight: Anesthesia: Height & Weight Height 5 ft 5 in 01/16/24 14:42 Weight: 79 kg 01/16/24 14:42 Body Mass Index (BMI) 29.0 01/16/24 14:42 Respiratory Assessment Respiratory Assessment - silk washing machine operator: Respiratory Tract Infection Hx - 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 Has anyone observed you stop breathing during sleep? STOP Results Positive 01/09/24 10:07 QUESTION #5 FULL TEXT : Do you snore loudly (louder than talking or can be heard through closed doors)? 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 Specify any problems Hx of Preganancy in last 3 No 01/09/24 10:07 Months Nurse Filling Out Transfusion [email or web address] 01/09/24 10:07 & Questions: Date: 01/09/24 01/09/24 10:07 Time: 10:09 01/09/24 10:07 Patient unable to answer at this time (ie. 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: /Reproductive Hx- silk washing machine operator Hx Now Gestational Age (in weeks): EDC: Hx Hx Para Hx Section SAB No 10/17/23 09:30 Active Medications Active Medications: Current Medications Generic Name Dose Route Start Last Admin Trade Name Freq PRN Reason Stop Dose Admin Cefazolin Sodium 2 gm/ N/A 20 mls @ 400 mls/hr 01/16/24 15:45 IV 01/16/24 15:47 PREOP ONE Lactated Ringer's 1,000 mls @ 15 mls/hr 01/16/24 14:45 01/16/24 14:53 IV 01/22/24 04:04 15 mls/hr .Q48H JOIE Administration Protocol PFS Medical History Heartburn Wears glasses Wears dentures Dietary restriction Thyroid disease Diabetes Arthritis High cholesterol Back pain Blackout CPAP (continuous positive airway pressure) dependence Non-smoker History of pain when walking History of echocardiogram History of stress test Cardiology follow-up encounter HTN (hypertension) NSTEMI (non-ST elevated myocardial infarction) Home Medications ?Medication ?Instructions ?Recorded ?Last Taken ?Type isosorbide dinitrate 30 mg tablet 30 mg PO DAILY 12/13/18 01/16/24 History rosuvastatin 10 mg tablet (Crestor) 5 mg PO MOWEFR 12/13/18 01/12/24 History verapamil 120 mg 24 hr 120 mg PO DAILY 12/13/18 01/16/24 History capsule,extended release calcium carbonate 600 mg PO DAILY 01/01/19 01/15/24 History cranberry extract 500 mg capsule 1,000 mg PO DAILY 01/01/19 01/15/24 History multivitamin with minerals 1 ea PO DAILY 01/01/19 01/15/24 History omega-3 fatty acids 1,000 mg 2,000 mg PO DAILY 01/01/19 01/12/24 History capsule hydroxychloroquine 200 mg tablet 200 mg PO BID 10/17/23 01/15/24 History latanoprost 0.005 % eye drops 1 drp ophthalmic (eye) QHS 10/17/23 01/15/24 History levothyroxine 25 mcg tablet 25 mcg PO DAILY 10/17/23 01/16/24 History Allergy/AdvReac Type Severity Reaction Status Date / Time aspirin Allergy Mild Rash Verified 01/16/24 14:38 diltiazem (From Cardizem) Allergy Mild Rash Verified 01/16/24 14:38 nifedipine Allergy Mild Rash Verified 01/16/24 14:38 Family History Mother Diabetes Sister Diabetes CAD (coronary artery disease) Father Heart disease Surgical History History of carpal tunnel surgery of right wrist History of carpal tunnel surgery of left wrist Hx of colonoscopy S/P tubal ligation S/P laparoscopic cholecystectomy Social History Smoking Status: Never smoker alcohol intake: never Review of Systems (Anesthesia) ROS Narrative System reviewed and no additional complaints, except as documented.
[2024-01-16] MEDS: Cefazolin 2 GM in Syringe IV (15:22)
[2024-01-16] MEDS: Lidocaine 1% /Epi 1:100 (20ml) 20 ML Vial (15:56)
--- NOTE | 2024-01-16 16:30 | PCM.POST.ANE ---
Anesthesia: Postop Eval I Current Vital Signs Temperature: 97.7 F Pulse Rate: 70 Blood Pressure: 125/69 Respiratory Rate: 16 Pulse Ox: 98 Oxygen Delivery Method: Room Air Assessment Airway patent: Yes Spontaneous unlabored respirations: Yes Mental status: Awake and Calm nausea: No Vomiting: No Anesthesia Complication: No Fluid Hydration Crystalloid volume administer (ml): 800 Total IV fluid infused: 800 Progress Note Anesthesia document: Postop Eval 1 completed: Yes
--- NOTE | 2024-01-16 16:36 | PCM.OPRPT ---
Operative Report (Standard) Operative Information Surgery/Procedure Performed: 1. Left cubital tunnel release 2. Revision left carpal tunnel release 3. Flexor tenosynovectomy at the carpal tunnel left wrist Surgeon: Thomas Vickers Date of Procedure: 01/16/24 Procedure Start Time: 15:35 Procedure Stop Time: 16:22 Pre-Operative Diagnosis: 1. Left cubital tunnel syndrome 2. Recurrent left carpal tunnel syndrome Post-Operative Diagnosis: 1. Left cubital tunnel syndrome 2. Recurrent left carpal tunnel syndrome Select all DRAINS/GRAFTS/IMPLANTS that apply: None Type of Anesthesia: General Estimated Blood Loss: 10 cc Fluids Replaced: Per anesthesia record Specimen collected: No Description of surgery: Patient was identified in the preoperative holding area by name, medical record number, date of . The operative extremities marked. All questions were answered to the patient satisfaction. At time of her procedure, patient brought to the operative suite and positioned supine on a standard operating table. General anesthesia was induced and LMA placed. All bony prominences were well-padded. We spun the bed 45 degrees. A well-padded pneumatic tourniquet was applied to left upper arm. We prepped and draped the left upper extremity in a normal, sterile orthopedic fashion. We performed a timeout confirming the side, site, and operation to be performed. No concerns were voiced and we elected to proceed with surgery. 2 g Ancef was administered IV prior to tourniquet inflation by anesthesia staff. I then exsanguinated the left upper extremity with Esmarch bandage. Tourniquet was inflated to 250 mmHg which remained up for approximately 30 minutes. Esmarch was removed. I first turned my attention to the wrist. A longitudinal incision was made sharply in the palm overlying the hook of the hamate and extended into the distal wrist approximately 3 cm via a Santo type extension across the flexor crease. Full-thickness skin flaps were developed down to the level of the fascia. The palmaris longus was identified and retracted ulnarly. The median nerve was significantly compressed as it entered the carpal tunnel. Thickened synovium was released over top of the median nerve. Release was carried distally into the carpal tunnel with significant scar tissue and remanent of the transverse carpal ligament. I dissected freely the motor branch ensuring no compression. The nerve appeared normal in appearance. I then performed a tenosynovectomy of the 9 flexor tendons within the carpal tunnel sharply with Littler scissors. I then turned my attention to the elbow. An oblique incision was made between the medial epicondyle and the olecranon across the elbow crease. Full-thickness skin flaps were developed after bluntly dissecting the subcutaneous plane. No crossing medial antebrachial cutaneous nerve was identified. Anconeus epitrochlearis was noted and likely contributed to compression. The muscle belly was excised with bipolar cautery. I then identified the underlying nerve. Chahal's ligament was released. I then dissected distally to the 2 heads of the flexor carpi ulnaris. The superficial and deep fascia was released. There was a decussation of the nerve at this level likely due to chronic compression and anomalous anatomy. I then turned my attention proximally. The medial brachial intermuscular septum was released and a 1 x 5 cm slip was excised. The arcade of [place] was significantly compressing the nerve and was released. The elbow was then brought through a range of motion and was stable. Tourniquet was deflated. Hemostasis was achieved with bipolar cautery. Subcutaneous field blocks were administered with 20 cc total 1% lidocaine with epinephrine 1: 100,000. Dermal layers were reapproximated with interrupted buried 3-0 Vicryl suture. Skin was finally reapproximated with a running subcuticular 4 Monocryl with both incisions and Dermabond applied. A well-padded volar short arm splint was applied to protect the carpal tunnel. A bulky sterile compression dressing was applied to the elbow. Patient was placed in a simple sling. She was safely awakened in the operative suite and extubated. She tolerated the procedure well without apparent complication. Need for skilled printer floor covering assistant: Brissa Machuca PA-C was critical to the outcome of the case. During the course of the procedure the physician printer floor covering assistant played a vital role. Her intimate knowledge of my steps in the procedure aided in safe and expedient completion of the procedure. The PA played a vital role in positioning particularly in obtaining the appropriate positioning. The PA was also vital in the retraction of soft tissues during the exposure and protecting vital structures. She also played a vital role in closure and splint application with my direct supervision. Postoperative plan: Maintain splint and dressing x 7 days. Gentle range of motion the elbow. After 1 week okay for gentle range of motion of the wrist. Follow-up in 2 weeks for wound check. Ice to the operative sites. Tylenol and oxycodone for pain relief. Patient has an allergy to aspirin, no anticoagulant indicated. Surgical Findings: Severe compression of the median nerve at the carpal tunnel with abundant scar tissue. Thick chronic flexor tenosynovitis at the carpal tunnel. No remaining compression following carpal tunnel release. Anconeus epitrochlearis accessory muscle at the cubital tunnel. Severe compression of the ulnar nerve between the 2 heads of the FCU. No remaining compression following release at the elbow. Crm Coordinator pressing department supervisor: Yes General Ledger Accountant: Brissa Machuca Tasks completed by office assistant receptionist: Opening & closing, Dissecting tissue and Retracting Additional printer floor covering assistant?: No Complications Complications: No Admit VTE Documentation VTE Present on Admission: No VTE Mechan Device Prophylaxis: SCD's VTE Pharm Prophylaxis ordered?: No Reason prophylaxis not ordered: Treatment Not Indicated
--- NOTE | 2024-01-17 07:26 | POSTOPAN2_ITS ---
Anesthesia Postop Eval I Sum Postop Eval Completion status Anesthesia document: Postop Eval 1 completed: Yes Anesthesia Postop Eval I Summary Anesthesia Postop Eval I Summary: Anesthesia Postop Eval I: Assessment Summary Airway patent Yes 01/16/24 16:31 CONCRETE MIXER OPERATOR [email or web address] Spontaneous unlabored Yes 01/16/24 16:31 CONCRETE MIXER OPERATOR HELPER.MDOT respirations Mental status Awake,Calm 01/16/24 16:31 CONCRETE MIXER OPERATOR [email or web address].MDOT nausea No 01/16/24 16:31 CONCRETE MIXER OPERATOR [email or web address].MDOT Vomiting No 01/16/24 16:31 CONCRETE MIXER OPERATOR [email or web address].[email or web address] Anesthesia Postop Eval I: Fluid Summary Crystalloid volume administer 800 01/16/24 16:31 CONCRETE MIXER OPERATOR HELPER.MDOT (ml) Colloids volume administered ( ml) Blood Product volume administered (ml) Total IV fluid infused 800 01/16/24 16:31 CONCRETE MIXER OPERATOR [email or web address].[email or web address] Anesthesia Postop Eval I: Summary Notes Anesthesia Complication No 01/16/24 16:31 CONCRETE MIXER OPERATOR [email or web address].MDOT Anesthesia Complication Comment: Post-operative progress note Anesthesia: Postop Eval II Evaluation Mental status: Awake Pain Level: 0 nausea: No Vomiting: No
--- NOTE | 2024-01-17 07:26 | PCM.POSTANE2 ---
Anesthesia Postop Eval I Sum Postop Eval Completion status Anesthesia document: Postop Eval 1 completed: Yes Anesthesia Postop Eval I Summary Anesthesia Postop Eval I Summary: Anesthesia Postop Eval I: Assessment Summary Airway patent Yes 01/16/24 16:31 ANALYSIS [email or web address] Spontaneous unlabored Yes 01/16/24 16:31 ANALYSIS [email or web address] respirations Mental status Awake,Calm 01/16/24 16:31 ANALYSIS [email or web address] nausea No 01/16/24 16:31 ANALYSIS [email or web address] Vomiting No 01/16/24 16:31 ANALYSIS [email or web address] Anesthesia Postop Eval I: Fluid Summary Crystalloid volume administer 800 01/16/24 16:31 ANALYSIS [email or web address].MDOT (ml) Colloids volume administered ( ml) Blood Product volume administered (ml) Total IV fluid infused 800 01/16/24 16:31 ANALYSIS [email or web address] Anesthesia Postop Eval I: Summary Notes Anesthesia Complication No 01/16/24 16:31 ANALYSIS [email or web address] Anesthesia Complication Comment: Post-operative progress note Anesthesia: Postop Eval II Evaluation Mental status: Awake Pain Level: 0 nausea: No Vomiting: No
== END 2024-01-16 17:59 | disposition home or self-care (01) ==
LOC: SDC 14:13 → AC 14:17
PROVIDERS: PCP Internal Medicine; Referring Provider Student in an Organized Health Care Education/Training Program; Visit Provider Student in an Organized Health Care Education/Training Program
PROC: (CPT 64721; principal; 2024-01-16 15:30)
DX: G56.22 Lesion of ulnar nerve, left upper limb (principal); E11.9 Type 2 diabetes mellitus without complications; G56.02 Carpal tunnel syndrome, left upper limb; I10 Essential (primary) hypertension; I25.2 Old myocardial infarction; E07.9 Disorder of thyroid, unspecified; E78.00 Pure hypercholesterolemia, unspecified; M19.90 Unspecified osteoarthritis, unspecified site; G47.30 Sleep apnea, unspecified; Z90.49 Acquired absence of other specified parts of digestive tract; Z79.890 Hormone replacement therapy; Z79.899 Other long term (current) drug therapy
CPT/HCPCS: 64718; 64721; J7120; A4216; J2405

== ENCOUNTER 2024-03-27 14:00 | Outpatient (RCR) | payer MEDICARE, SELFPAY ==
--- NOTE | 2024-03-07 17:15 | HP.OTEVAL ---
Patient's Visit Information Visit Information Visit Information: BJORN STEPHENS is a 73 year old F, referred to Occupational Therapy by MICHELLE Zavala, with a diagnosis of ulnar nerve lesion median nerve lesion. Date of Evaluation: 03/07/24 Occupational Therapist: AARON Churchill/Peter, CHT Subjective Subjective: This 73 year old female was seen for OT eval with dx of left Ulnar nerve and CTS. Pt states she underwent bilateral CTR in 2020. pt states she had ongoing issues with tingling and noticed increase weakness- pt states this made daily tasks difficult. Pt is right handed. pt underwent right Carpal tunnel revision 2023 and left carpal tunnel revision with ulnar nerve decompression 2023. Pt states right hand is feeling better but feels her left hand is not where she feels it should be at this time. Pain left LF: Current Pain Intensity: 4 Pain Intensity Range: 4 ROM Elbow: right +5/145 left +5/145 Forearm: right/left WNL Wrist: right 60/55 left 65/50 Strength Environmental Planning Engineer: right 35# left 23# Lateral Pinch: right 10# left 4# Tripod Pinch: right 8# left 4# Sensation Thumb: right 2.83 left 2.83 Index: right 2.83 left 2.83 Middle: right 2.83 left 2.83 Ring: right 2.83 left 2.83 Little: right 2.83 left 2.83 Quick DASH-Disab of Arm,Shoulder& Hand Quick DASH Score: 31.8175 Goals Goal:: pt will demo a increase in left customer experience manager strength by 10# or greater to increase pts IND with ADLs by d.c Goal:: pt will report no pain greater than 2/10 or less with daily tasks by d.c Goal:: pt will report a decrease in scar sensitivity by 50% or more by d.c pt will demo understanding of scar mtg by end of 1st session Goal:: pt will demo understanding of nerve recovery following nerve release/decompression sx by end of 1st session. Rehabilitation General Assessment: pt arrives following right and left CTR revisions and left ulnar nerve decompression- pt continues to demo with ulnar nerve sensation deficits as well as weakness and scar hyper trophy limiting pts full use of left hand with ADL. pt would benefit from skilled OT services to improve pts functional strength of left UE- as well as ed, pt on recovery of nerves that have been compressed for some time. pt demo understanding and agree to POC, Rehabilitation Potential: Good Anticipated Interventions Anticipated Interventions: A/AAROM/PROM, Strengthening, Scar Care, Triggerpoint Release, Sensory Retraining, Modalities, Orthoses, Joint Protection/Energy Conservation, Education re assistive Equipment, Education re Diagnosis, Caregiver Training and Home Program Visit Plan Frequency: Every Other Week Duration: 3 Months General Plan: ed. pt on time frame of nerve healing strength as rashard scar mtg TEXT: Thank you for the opportunity to evaluate your patient. For Medicare and Medicare HMO plans, please review the plan of care and approve it. It will need to be FAXED BACK to us at [phone] for Medicare purposes. Please let me know if there are questions or concerns regarding this plan of care. Physician Signature: Date:
--- NOTE | 2024-08-27 16:24 | HP.OT.NRP ---
Patient Information Patient Information: BJORN STEPHENS was seen in my office for initial evaluation on 03/07/24. The following Plan of Care was established for this patient: POC Established Initial Frequency: Every Other Week Initial Duration: 3 Months Anticipated Interventions Anticipated Interventions: A/AAROM/PROM, Strengthening, Scar Care, Triggerpoint Release, Sensory Retraining, Modalities, Orthoses, Joint Protection/Energy Conservation, Education re assistive Equipment, Education re Diagnosis, Caregiver Training and Home Program Last Seen Last Seen: This patient was last seen in our office 03/27/24. Pertinent comments regarding their Occupational therapy will appear below: pt was seen for 2 OT sessions. Due to time lapse in services pt is d/c at this time. At this point I will be discontinuing this patient from occupational therapy. I would be happy to see this patient again in the future if found appropriate by the physician. Thank you! Reyna Saravia, OTR/L, CHT
== END 2024-03-27 19:00 | disposition home or self-care (01) ==
LOC: OT 14:00
PROVIDERS: PCP Internal Medicine; Referring Provider Physician Assistant Surgical; Visit Provider Physician Assistant Surgical
DX: G56.02 Carpal tunnel syndrome, left upper limb (principal); G56.22 Lesion of ulnar nerve, left upper limb; R20.2 Paresthesia of skin
CPT/HCPCS: 97035; 97110; 97140; 97166; 97530

== ENCOUNTER → 2024-04-24 | Outpatient (CLI) | payer MEDICARE, SELFPAY ==
--- NOTE | 2024-04-24 12:42 | BI_ITS ---
PROCEDURE: SCRN MAMM (CAD)W/CHARLIE BILAT REASON FOR EXAM: F, Age 73 y/o, presents for annual screening mammogram. No family history of breast cancer. TECHNIQUE: Bilateral screening digital breast tomosynthesis with 2D and 3D images. Computer aided detection. COMPARISON: 03/10/2023 FINDINGS: There are scattered areas of fibroglandular density. No suspicious masses, areas of developing architectural distortion, or suspicious calcifications. BI/SCRN MAMM (CAD)W/CHARLIE BILAT IMPRESSION: There is no mammographic evidence of malignancy in either breast. BI-RADS 1: NEGATIVE. RECOMMEND ANNUAL MAMMOGRAPHIC SCREENING. Follow-up code: Routine Follow-up The patient will be notified of the results by letter. Reading Location: [id number]
== END | disposition home or self-care (01) ==
LOC: OPBI 12:41
PROVIDERS: PCP Internal Medicine; Referring Provider Internal Medicine; Visit Provider Internal Medicine
DX: Z12.31 Encounter for screening mammogram for malignant neoplasm of breast (principal)
CPT/HCPCS: 77063; 77067